=== PATIENT | female | born 1955 | race Caucasian/White ===

== ENCOUNTER 2017-03-06 00:37 | Observation (INO) | payer OTHER ==
[2017-03-06] VITALS (10 sets, daily range): BP systolic 162–232; BP diastolic 72–100; PULSE 60–68; RESP 16–20; TEMP 96.8–98.5; O2SAT 95–100
[~2017-03-06] VITALS: Ht 160 cm; Wt 110.0 kg
[~2017-03-06 00:37] MED LIST: LASI20TA PO; NOVONP2 SQ; SERT100 PO; TERA2CAP3 PO; TOPR100T15 PO
--- NOTE | 2017-03-06 01:08 | PD ---
HPI Chief Complaint: Syncope/Near-Syncope Time Seen by Provider: 00:51 Travel History International Travel<30 days: No Contact w/Intl Traveler<30days: No Traveled to known affect area: No History of Present Illness HPI The patient is a 61 year old female who presents to the [facility] emergency department with a history of syncopal event that first occurred 10-11 days ago. She reports that she did not fall or injure herself. Her son was able to assist her to lie down in bed. She reports that she was not evaluated regarding this. 30 minutes prior to arrival she took her nightly insulin and 2 blood pressure medications and stood up to go to bed. She reports that she felt dizzy/lightheaded. She reports that she was able to sit back down and called out to her son in the other room. Her son arrived in the room began to speak to her, however she became less responsive to him although still with her eyes open. She reports that this lasted for a few seconds and the symptoms again resolved. She reports having generalized weakness after this. She denies having any chest pain, chest pressure, or shortness of breath. She reports that she did receive her usual hemodialysis on Monday. She reports that she normally receives that on Monday, , and Monday. She reports that she's been on hemodialysis for the last 3-1/2 years. A review of systems, the patient denies any recent fevers, cough, congestion, neck pain, chest pain, shortness of breath, palpitations, abdominal pain, vomiting, diarrhea, urinary symptoms, one-sided weakness, slurred speech, facial droop, difficulty with word finding ability, or vision changes [facility] Past Medical History Narrative Medical The patient's past medical history is significant for diabetes mellitus, hypertension, history of pulmonary edema thought to be related to renal failure that has not recurred since being placed on hemodialysis, anemia, COPD, gout, depression, chronic renal failure on hemodialysis.. Anemia: Yes Arthritis: Yes (LOWER BACK) Asthma: No Autoimmune Disease: No Blood Disorders: No Anxiety: No Depression: Yes Heart Rhythm Problems: No Cancer: No Cardiac Catheterization: Yes (MARCH OF 2008) Cardiovascular Problems: Yes High Cholesterol: Yes Chemotherapy: No Chest Pain: No Congestive Heart Failure: Yes COPD: No Cerebrovascular Accident: Yes Diabetes: Yes Patient Takes Glucophage: No Diminished Hearing: No Endocrine: Yes Gastrointestinal Disorders: Yes (DIARRHEA X 3 MTHS,20MINUTES AFTER EAT) GERD: Yes Glaucoma: No Gout: Yes Genitourinary: Yes (KIDNEY STONES > 10 YEARS AGO) Headaches: No Hepatitis: No Hiatal Hernia: No Hypertension: Yes Immune Disorder: No Kidney Stones: Yes Musculoskeletal: No Neurologic: No Psychiatric: No Reproductive: No Respiratory: Yes (EPISODES OF SOB) Immunizations Current: Yes Migraines: No Myocardial Infarction: No Radiation Therapy: No Renal Failure: Yes (STATES KIDNEY FUNCTION AT 50%) Seizures: No Sickle Cell Disease: No Sleep Apnea: No Thyroid Disease: No Ulcer: No Tetanus Vaccination: < 5 Years Influenza Vaccination: No Menopausal: Yes : 2 Para: 2 Tubal Ligation: Yes Past Surgical History Narrative Surgical The patient's past surgical history is significant for a 2, cholecystectomy, hernia repair. Abdominal Surgery: Yes (HERNIA X 2,GALLBLADDER REMOVED) AICD: No Appendectomy: No Arteriovenous Shunt: No Cardiac Surgery: Yes (CATH JUN 2008) Section: Yes (X 2) Cholecystectomy: Yes Ear Surgery: No Endocrine Surgery: No Eye Surgery: No Genitourinary Surgery: No Gynecologic Surgery: Yes (2 CSECTIONS) Insulin Pump: No Joint Replacement: No Oral Surgery: No Pacemaker: No Thoracic Surgery: No Other Surgery: Yes (UMBILICAL HERNIA REPAIR 2006) Social History Alcohol Use: No Tobacco Use: No Substance Use: No Allergies-Medications (Allergen,Severity, Reaction): Coded Allergies: No Known Allergies (Verified , 03/06/17) Reported Meds & Prescriptions Reported Meds & Active Scripts Active Reported Duloxetine DR (Duloxetine HCl) 20 Mg Capdr 20 Mg PO DAILY Synthroid (Levothyroxine Sodium) 50 Mcg Tab 50 Mcg PO DAILY Renvela (Sevelamer Carbonate) 800 Mg Tab 800 Mg PO TID Novolin N Inj (Insulin Human NPH) 100 Unit/Ml Inj 78 Unit SQ DAILY TAKE 78 UNITS AM AND 38 UNITS PM Fluoxetine (Fluoxetine HCl) 40 Mg Cap 40 Cap PO DAILY Guanfacine (Guanfacine HCl) 1 Mg Tab 1 Mg PO HS Do not crush, chew or divide tablet. Take with a meal. Terazosin (Terazosin HCl) 10 Mg Cap 10 Mg PO HS Metoprolol Tartrate 50 Mg Tab 50 Mg PO DAILY Review of Systems Except as stated in HPI: all other systems reviewed are Neg General / Constitutional: No: Fever Eyes: No: Visual changes HENT: Positive: Lightheadedness, No: Headaches, Vertigo Cardiovascular: Positive: Syncope, No: Chest Pain or Discomfort, Dyspnea on exertion Respiratory: No: Shortness of Breath Gastrointestinal: No: Nausea, Vomiting, Diarrhea, Abdominal Pain Genitourinary: No: Dysuria Musculoskeletal: No: Pain Skin: No Rash Neurologic: Positive: Syncope, No: Weakness, Focal Abnormalities, Change in Mentation, Slurred Speech, Sensory Disturbance Psychiatric: No: Depression Endocrine: No: Polydipsia Hematologic/Lymphatic: No: Easy Bruising Physical Exam Narrative General: The patient is a well-developed well-nourished female in no acute distress. Head and Neck exam: Head is normocephalic atraumatic. Eyes: EOMI, pupils are equal round and reactive to light. Nose: Midline septum with pink mucous membranes Mouth: Dentition unremarkable. Moist mucus membranes. Posterior oropharynx is not erythematous. No tonsillar hypertrophy. Uvula midline. Airway patent. Neck: No palpable lymphadenopathy. No nuchal rigidity. No thyromegaly. Cardiovascular: Regular rate and rhythm without murmurs, gallops, or rubs. No pulse deficit to the extremities and simultaneous auscultation and palpation of her radial artery. Lungs: Clear to auscultation bilaterally. No wheezes, rhonchi, or rales. Abdomen: Soft, without tenderness to palpation in all 4 quadrants of the abdomen. No guarding, rebound, or rigidity. Normal bowel sounds are audible. No tenderness on palpation of McBurney's point. Extremities: No clubbing, cyanosis, or edema. 2+ pulses in all 4 extremities. No calf tenderness on palpation. Back: No costovertebral angle tenderness to palpation. Neurologic Exam: Cranial nerves 2-12 were intact on exam. Strength is 5/5 in all 4 extremities. No sensory deficits noted. Skin Exam: No rash noted. Intact skin that is warm and dry. Data Data Last Documented VS Vital Signs Date Time Temp Pulse Resp B/P Pulse Ox O2 Delivery O2 Flow Rate FiO2 03/06/17 02:40 66 18 191/87 67 18 190/86 70 20 198/90 03/06/17 02:40 100 Room Air 03/06/17 00:39 98.2 Orders Complete Blood Count With Diff (03/06/17 00:51) Comprehensive Metabolic Panel (03/06/17 00:51) Creatine Kinase (Cpk) (03/06/17 00:51) Ckmb (Isoenzyme) Profile (03/06/17 00:51) Troponin I (03/06/17 00:51) B-Type Natriuretic Peptide (03/06/17 00:51) Prothrombin Time / Inr (Pt) (03/06/17 00:51) Act Partial Throm Time (Ptt) (03/06/17 00:51) Lipase (03/06/17 00:51) Magnesium (Mg) (03/06/17 00:51) Phosphorus (Po4) (03/06/17 00:51) Chest, Single Ap (03/06/17 00:51) Ct Brain W/O Iv Contrast(Rout) (03/06/17 00:51) Iv Access Insert/Monitor (03/06/17 00:51) Ecg Monitoring (03/06/17 00:51) Oximetry (03/06/17 00:51) Orthostatic Vital Signs (03/06/17 00:53) CKMB (03/06/17 00:56) CKMB% (03/06/17 00:56) Clonidine (Catapres) (03/06/17 03:45) Admit Order (Ed Use Only) (03/06/17 03:39) Bedside Glucose LINA.AC&HS (03/06/17 03:36) Blood Glucose Goal (Criteria) (03/06/17 03:36) Hypoglycemia 70 Mg/Dl Or < (03/06/17 03:36) Notify Dr: Other (03/06/17 03:36) Dextrose 50% In Natty (Vial) Inj (D50w (Vi (03/06/17 03:45) Glucagon Inj (Glucagon Inj) (03/06/17 03:45) Insulin Aspart Supplemtl Scale (Novolog (03/06/17 07:00) Hemoglobin (Hgb) A1c (03/06/17 08:00) Thyroid Stimulating Hormone (03/06/17 08:00) Echo 2d Comp With Doppler (03/06/17 ) Place In Observation (03/06/17 ) Vital Signs (Adult) Q4H (03/06/17 03:36) Activity Oob With Assistance (03/06/17 03:36) Signaling Project Engineer / Telemetry .CONTINUOUS (03/06/17 03:36) Intake + Output LINA.QSHIFT (03/06/17 03:36) Diet 1800 Ada Cons Carb (03/06/17 Breakfast) Sodium Chloride 0.9% Flush (Ns Flush) (03/06/17 03:45) Sodium Chloride 0.9% Flush (Ns Flush) (03/06/17 09:00) Ondansetron Inj (Zofran Inj) (03/06/17 03:45) Comprehensive Metabolic Panel (03/07/17 06:00) Complete Blood Count With Diff (03/07/17 06:00) Troponin I (03/06/17 08:00) Troponin I (03/06/17 14:00) Heparin Inj (Heparin Inj) (03/06/17 09:00) Acetaminophen (Tylenol) (03/06/17 03:45) Acetamin-Hydrocod 325-5 Mg ([place] 5-325 (03/06/17 03:45) Morphine Inj (Morphine Inj) (03/06/17 03:45) Docusate Sodium-Senna (Marilyn-Colace) (03/06/17 09:00) Magnesium Hydroxide Liq (Milk Of Magnesi (03/06/17 03:45) Sennosides (Senokot) (03/06/17 03:45) Bisacodyl Supp (Dulcolax Supp) (03/06/17 03:45) Lactulose Liq (Lactulose Liq) (03/06/17 03:45) Duloxetine (Vandana Caal) (03/06/17 09:00) Fluoxetine (Prozac) (03/06/17 09:00) Levothyroxine (Synthroid) (03/06/17 06:00) Metoprolol Tartrate (Lopressor) (03/06/17 09:00) Sevelamer (Renvela) (03/06/17 09:00) Terazosin (Hytrin) (03/06/17 21:00) Labs Laboratory Tests Test 03/06/17 03/06/17 03/06/17 00:56 01:18 03:40 Prothrombin Time 10.1 SEC Prothromb Time International 0.9 RATIO Ratio Activated Partial 22.6 SEC Thromboplast Time Sodium Level 137 MEQ/L Potassium Level 5.0 MEQ/L Chloride Level 104 MEQ/L Carbon Dioxide Level 25.9 MEQ/L Anion Gap 7 MEQ/L Blood Urea Nitrogen 39 MG/DL Creatinine 7.30 MG/DL Estimat Glomerular Filtration 6 ML/MIN Rate Random Glucose 179 MG/DL Calcium Level 7.6 MG/DL Phosphorus Level 2.8 MG/DL Magnesium Level 2.3 MG/DL Total Bilirubin 0.3 MG/DL Aspartate Amino Transf 39 U/L (AST/SGOT) Alanine Aminotransferase 37 U/L (ALT/SGPT) Alkaline Phosphatase 152 U/L Total Creatine Kinase 142 U/L Creatine Kinase MB 0.8 NG/ML Troponin I LESS THAN 0.02 NG/ML Total Protein 8.3 GM/DL Albumin 3.3 GM/DL Lipase 432 U/L White Blood Count 7.6 TH/MM3 Red Blood Count 3.63 MIL/MM3 Hemoglobin 11.7 GM/DL Hematocrit 35.9 % Mean Corpuscular Volume 98.7 FL Mean Corpuscular Hemoglobin 32.2 PG Mean Corpuscular Hemoglobin 32.7 % Concent Red Cell Distribution Width 14.0 % Platelet Count 153 TH/MM3 Mean Platelet Volume 9.0 FL Neutrophils (%) (Auto) 75.3 % Lymphocytes (%) (Auto) 16.5 % Monocytes (%) (Auto) 4.6 % Eosinophils (%) (Auto) 3.1 % Basophils (%) (Auto) 0.5 % Neutrophils # (Auto) 5.7 TH/MM3 Lymphocytes # (Auto) 1.3 TH/MM3 Monocytes # (Auto) 0.3 TH/MM3 Eosinophils # (Auto) 0.2 TH/MM3 Basophils # (Auto) 0.0 TH/MM3 CBC Comment DIFF FINAL Differential Comment B-Type Natriuretic Peptide 162 PG/ML Urine Color YELLOW Urine Turbidity HAZY Urine pH 6.5 Urine Specific [place] 1.014 Urine Protein 100 mg/dL Urine Glucose (UA) TRACE mg/dL Urine Ketones NEG mg/dL Urine Occult Blood TRACE Urine Nitrite NEG Urine Bilirubin NEG Urine Urobilinogen 2.0 MG/DL Urine Leukocyte Esterase MOD Urine RBC 0-3 /hpf Urine WBC 9-14 /hpf Urine Squamous Epithelial 6-8 /hpf Cells Urine Bacteria FEW /hpf Microscopic Urinalysis Comment CULTURE INDICATED MDM Medical Decision Making Medical Screen Exam Complete: Yes Emergency Medical Condition: Yes Medical Record Reviewed: Yes Interpretation(s) Last Impressions Head CT 03/06/1750 Signed Impressions: Service Date/Time: Monday, March 06, 2017 01:20 - CONCLUSION: Normal examination. Ted Mi MD Chest X-Ray 03/06/1750 Signed Impressions: Service Date/Time: Monday, March 06, 2017 01:14 - CONCLUSION: Normal examination. Ted Mi MD Differential Diagnosis Cardiac arrhythmia, versus orthostasis, versus acute coronary syndrome, versus pulmonary edema, versus electrolyte derangement Narrative Course During the course of the patients emergency department visit, the patients history, examination, and differential diagnosis were reviewed with the patient. The patient had IV access obtained and blood work sent for analysis. The patient was placed on a cardiac cath rn with oximetry and blood pressure monitoring. An EKG was done on arrival. The patient's EKG shows a sinus rhythm heart rate of 62, QRS duration is 81 ms, QTC is prolonged at 472 ms, no acute ST segment elevation or depression. T waves are inverted in V1. The patients laboratory studies were reviewed and remarkable for white count of 7.6, hemoglobin 11.6, platelets 153 with neutrophils 75.3, CMP is remarkable for BUN of 39, creatinine 7.30, glucose 179, calcium 7.6, AST 39, alkaline phosphatase 152, CPK 152, troponin I less than 0.02, BNP 162, lipase 432, PT 10.1, PTT 22.6 Radiology studies were reviewed and remarkable for a chest x-ray that shows no acute abnormality. CT scan of the brain shows no acute abnormality. The patient will be administered admitted to the hospital for recurrent syncopal events for continued evaluation and treatment. The patients results were discussed with the patient, including the plan of care. I explained that further testing and/ or monitoring is indicated based on the patients history, examination, and/ or laboratory findings. Therefore, I recommended admission for additional evaluation. The patient expressed understanding and was agreeable with this plan. The patient was admitted to the hospital in stable condition and sent to a bed under the care of the [facility]. Physician Communication Physician Communication The patient's case was discussed with Dr. Ayoub who did agree to admit the patient for further evaluation and treatment at this time. Diagnosis Primary Impression: Syncope Qualified Code: R55 - Syncope, unspecified syncope type Admitting Information Admitting Physician Requests: Armida Robles MD Mar 06, 2017 01:08
[2017-03-06] MEDS ORDERED: GUAN1TAB PO (01:11)
[2017-03-06] MEDS ORDERED: LEVO.05 PO (01:11)
[2017-03-06] MEDS ORDERED: NOVONP2 SQ (01:11)
[2017-03-06] MEDS ORDERED: DULO1CAP PO (01:11)
[2017-03-06] MEDS ORDERED: SEVEL800 PO (01:11)
[2017-03-06] MEDS ORDERED: FLUO40CA PO (01:11)
[2017-03-06] MEDS ORDERED: TERA10CA3 PO (01:11)
[2017-03-06] MEDS ORDERED: METO50TA PO (01:11)
--- NOTE | 2017-03-06 01:29 | RADRPT ---
EXAM DATE/TIME: 03/06/2017 01:14 [facility] COMPARISON: No previous studies available for comparison. INDICATIONS : Chest pain. MEDICAL HISTORY : None. SURGICAL HISTORY : None. ENCOUNTER: Initial ACUITY: 1 day PAIN SCORE: 0/10 LOCATION: Bilateral chest FINDINGS: A single view of the chest demonstrates the lungs to be symmetrically aerated without evidence of mas s, infiltrate or effusion. The cardiomediastinal contours are unremarkable. Osseous structures are intact. CONCLUSION: Normal examination. Ted Mi MD on March 06, 2017 at 1:28 Board Certified Radiologist. This report was verified electronically.
[2017-03-06 01:30] LABS: APTT (PATIENT) 22.6 SEC (24.3-30.1); INTERNATIONAL NORMALIZED RATIO 0.9 RATIO; PROTHROMBIN TIME - PATIENT 10.1 SEC (9.8-11.6)
[2017-03-06 01:35] LABS: ALKALINE PHOSPHATASE 152 U/L (45-117); ALT (GPT) 37 U/L (10-53); ANION GAP 7 MEQ/L (5-15); AST (GOT) 39 U/L (15-37); BICARBONATE 25.9 MEQ/L (21.0-32.0); BLOOD UREA NITROGEN 39 MG/DL (7-18); CHLORIDE 104 MEQ/L (98-107); CREATINE KINASE 142 U/L (26-192); GLOMERULAR FILTRATION RATE 6 ML/MIN (>89); MAGNESIUM 2.3 MG/DL (1.5-2.5); SODIUM (NA) 137 MEQ/L (136-145); TOTAL BILIRUBIN ADULT 0.3 MG/DL (0.2-1.0)
--- NOTE | 2017-03-06 01:36 | RADRPT ---
EXAM DATE/TIME: 03/06/2017 01:20 [facility] COMPARISON: No previous studies available for comparison. INDICATIONS : Syncope. RADIATION DOSE: 37.02 CTDIvol (mGy) MEDICAL HISTORY : Cardiovascular disease. Congestive heart failure. Renal calculi.Renal failure. Hypertension. SURGICAL HISTORY : Cholecystectomy. Tubal ligation. section.Hernia repair. ENCOUNTER: Initial ACUITY: 1 day PAIN SCALE: 0/10 LOCATION: cranial TECHNIQUE: Multiple contiguous axial images were obtained of the head. Using automated exposure control and adj ustment of the mA and/or kV according to patient size, radiation dose was kept as low as reasonably a chievable to obtain optimal diagnostic quality images. FINDINGS: CEREBRUM: The ventricles are normal for age. No evidence of midline shift, mass lesion, hemorrhage or acute in farction. No extra-axial fluid collections are seen. POSTERIOR FOSSA: The cerebellum and brainstem are intact. The 4th ventricle is midline. The cerebellopontine angle i s unremarkable. EXTRACRANIAL: The visualized portion of the orbits is intact. SKULL: The calvaria is intact. No evidence of skull fracture. CONCLUSION: Normal examination. Ted Mi MD on March 06, 2017 at 1:35 Board Certified Radiologist. This report was verified electronically.
[2017-03-06 01:47] LABS: AUTOMATED NEUTROPHIL # 5.7 TH/MM3 (1.8-7.7); BASOPHIL % 0.5 % (0.0-2.0); EOSINOPHIL # 0.2 TH/MM3 (0-0.4); EOSINOPHIL % 3.1 % (0.0-4.0); HEMATOCRIT 35.9 % (35.0-46.0); HEMO FLAGS DIFF FINAL; LYMPH % 16.5 % (9.0-44.0); LYMPHOCYTE # 1.3 TH/MM3 (1.0-4.8); MEAN CELL VOLUME 98.7 FL (80.0-100.0); MEAN CORPUSCULAR HEMOGLOBIN 32.2 PG (27.0-34.0); MEAN CORPUSCULAR HGB CONC 32.7 % (32.0-36.0); MONO % 4.6 % (0.0-8.0); NEUT % 75.3 % (16.0-70.0); PLATELET COUNT 153 TH/MM3 (150-450); RED BLOOD COUNT 3.63 MIL/MM3 (4.00-5.30); WHITE BLOOD COUNT 7.6 TH/MM3 (4.0-11.0)
[2017-03-06 01:48] LABS: CKMB 0.8 NG/ML (0.5-3.6)
[2017-03-06] MEDS ORDERED: MAGNESIUM HYDROXIDE SUSP 30 ML CUP PO PRN (03:45)
[2017-03-06] MEDS ORDERED: SENNOSIDES 8.6 MG TAB PO PRN (03:45)
[2017-03-06] MEDS ORDERED: DEXTROSE 50% IN WATER 50 ML VIAL(D50) IV PRN (03:45)
[2017-03-06] MEDS ORDERED: LACTULOSE SYRUP 20 GM/30 ML CUP PO PRN (03:45)
[2017-03-06] MEDS ORDERED: ONDANSETRON HCL 4 MG/2 ML VIAL IVP PRN (03:45)
[2017-03-06] MEDS ORDERED: BISACODYL 10 MG SUPP RECTAL PRN (03:45)
[2017-03-06] MEDS ORDERED: ACETAMINOPHEN/HYDROcodone 325 MG/5 MG TAB PO PRN (03:45)
[2017-03-06] MEDS ORDERED: GLUCAGON 1 MG/ML VIAL OTHER PRN (03:45)
[2017-03-06] MEDS ORDERED: ACETAMINOPHEN 325 MG TAB PO PRN (03:45)
[2017-03-06] MEDS ORDERED: cloNIDine HCL 0.1 MG TAB PO ONE (03:45)
[2017-03-06] MEDS ORDERED: MORPHINE SULFATE 4 MG/ML INJ IV PRN (03:45)
[2017-03-06] MEDS ORDERED: SODIUM CHLORIDE 0.9% FLUSH 10 ML FLUSH IV FLUSH PRN (03:45)
[2017-03-06] MEDS ORDERED: hydrALAZINE HCL 20 MG/ML VIAL IV PUSH ONE (04:00)
[2017-03-06 04:13] LABS: BLOOD, URINE TRACE (NEG); GLUCOSE,URINE TRACE mg/dL (NEG); KETONE, URINE NEG (NEG); NITRITE,URINE NEG (NEG); PH, URINE 6.5 (5.0-8.5); URINE COLOR YELLOW (YELLW/STRAW)
[2017-03-06] MEDS ORDERED: SODIUM CHLORID 0.9% 500 ML INJ 500 ML IV ONE (04:15)
[2017-03-06 04:21] LABS: BACTERIA, URINE FEW /hpf; COMMENT (UR) CULTURE INDICATED; CULTURE IF INDICATED CULTURE INDICATED; RBC, URINE 0-3 /hpf (0-3)
--- NOTE | 2017-03-06 04:29 | HHI.HP ---
[facility] Shakila Orona MD Admission Diagnosis syncope, hypertension Diagnoses: (1) Syncope Diagnosis: Principal (2) Dehydration Diagnosis: Principal (3) Pancreatitis Diagnosis: Principal (4) HTN (hypertension) Diagnosis: Principal (5) DM (diabetes mellitus) Diagnosis: Principal (6) ESRD on hemodialysis Diagnosis: Principal Travel History International Travel<30 Days: No Contact w/Intl Traveler <30 Da: No Traveled to Known Affected Are: No History of Present Illness This is a 61-year-old female with a PMH of HTN, COPD, Gout, Depression, ESRD on HD T//Mon and DM who presented to the ER after apparent syncopal event. Pt states she had been sitting at her computer for several hours, got up to go to bed and had acute onset of dizziness and confusion, Son was present at the time and assisted pt into a chair. Per Son, pt staring off and confused for a moment. Reports similar symptoms approx 10 days ago when she got up to go the bathroom, did not seek medical attention at that time. States she "had been sick" for approx 4 wks prior to first episode and had been on multiple antibiotic regimens for Bronchitis, denies steroid therapy. Also notes having dialysis on Sat as scheduled, approx 1.5L removed which is her usual. Denies fever, chills, chest pain or cough. On arrival, BP 232/100, HR 60, O2 sat 98% on RA, Afebrile. BP currently 191/87, HR 66. CBC unremarkable. Chemistry at baseline. Lipase 432. UA pending. CXR with no acute findings. CT Head normal. Review of Systems Except as stated in HPI: all other systems reviewed are Neg ROS: 14 point review of systems otherwise negative. Past Family Social History Past Medical History PMH: HTN, COPD, Gout, Depression, ESRD on HD T/Th/Sat and DM Past Surgical History PAST SURGICAL HISTORY: Cholecystectomy, Hernia Repair, , Cardiac Cath Allergies: Coded Allergies: No Known Allergies (Verified , 03/06/17) Family History PAST FAMILY HISTORY: Reviewed, positive for DM and CAD. Social History PAST SOCIAL HISTORY: Negative for alcohol, tobacco or drugs. Physical Exam Vital Signs Vital Signs Date Time Temp Pulse Resp B/P Pulse Ox O2 Delivery O2 Flow Rate FiO2 03/06/17 02:40 66 18 191/87 67 18 190/86 70 20 198/90 03/06/17 02:40 100 Room Air 03/06/17 00:44 61 18 98 Room Air 03/06/17 00:39 98.2 60 18 232/100 98 Physical Exam PE: GENERAL: Very pleasant middle-aged white female in no acute distress. HEENT: PERRLA, EOMI. No scleral icterus or conjunctival pallor. No lid lag or facial droop. Dry mucous membranes, Dehydrated. CARDIOVASCULAR: Regular rate and rhythm. No obvious murmurs to auscultation. No chest tenderness to palpation. RESPIRATORY: No obvious rhonchi or wheezing. Clear to auscultation. Breath sounds equal bilaterally. GASTROINTESTINAL: Abdomen soft, non-tender, nondistended. BS normal. MUSCULOSKELETAL: Extremities without clubbing, cyanosis, or edema. No obvious deformities. NEUROLOGICAL: Awake, alert and oriented x4. No focal neurologic deficits. Moving both upper and lower extremities spontaneously. Laboratory Laboratory Tests Test 03/06/17 03/06/17 03/06/17 00:56 01:18 03:40 Prothrombin Time 10.1 Prothromb Time International 0.9 Ratio Activated Partial 22.6 Thromboplast Time Sodium Level 137 Potassium Level 5.0 Chloride Level 104 Carbon Dioxide Level 25.9 Anion Gap 7 Blood Urea Nitrogen 39 Creatinine 7.30 Estimat Glomerular Filtration 6 Rate Random Glucose 179 Calcium Level 7.6 Phosphorus Level 2.8 Magnesium Level 2.3 Total Bilirubin 0.3 Aspartate Amino Transf 39 (AST/SGOT) Alanine Aminotransferase 37 (ALT/SGPT) Alkaline Phosphatase 152 Total Creatine Kinase 142 Creatine Kinase MB 0.8 Troponin I LESS THAN 0.02 Total Protein 8.3 Albumin 3.3 Lipase 432 White Blood Count 7.6 Red Blood Count 3.63 Hemoglobin 11.7 Hematocrit 35.9 Mean Corpuscular Volume 98.7 Mean Corpuscular Hemoglobin 32.2 Mean Corpuscular Hemoglobin 32.7 Concent Red Cell Distribution Width 14.0 Platelet Count 153 Mean Platelet Volume 9.0 Neutrophils (%) (Auto) 75.3 Lymphocytes (%) (Auto) 16.5 Monocytes (%) (Auto) 4.6 Eosinophils (%) (Auto) 3.1 Basophils (%) (Auto) 0.5 Neutrophils # (Auto) 5.7 Lymphocytes # (Auto) 1.3 Monocytes # (Auto) 0.3 Eosinophils # (Auto) 0.2 Basophils # (Auto) 0.0 CBC Comment DIFF FINAL Differential Comment B-Type Natriuretic Peptide 162 Urine Color YELLOW Urine Turbidity HAZY Urine pH 6.5 Urine Specific [place] 1.014 Urine Protein 100 Urine Glucose (UA) TRACE Urine Ketones NEG Urine Occult Blood TRACE Urine Nitrite NEG Urine Bilirubin NEG Urine Urobilinogen 2.0 Urine Leukocyte Esterase MOD Result Diagram: 03/06/17 0118 03/06/17 0056 Assessment and Plan Problem List: (1) Syncope ICD Code: R55 Status: Acute (2) Dehydration ICD Code: E86.0 Status: Acute (3) Pancreatitis ICD Code: K85.90 Status: Acute (4) ESRD on hemodialysis ICD Code: N18.6 Status: Acute (5) HTN (hypertension) ICD Code: I10 Status: Acute (6) DM (diabetes mellitus) ICD Code: E11.9 Status: Acute Assessment and Plan A/P: 1. Syncope: acute onset of dizziness/lightheadedness after standing, likely vasovagal event, transient confusion, now resolved. CT Head w/ no acute findings, CXR negative, images reviewed by me. Initial trop negative. Will check serial cardiac enzymes to eval for underlying ischemia, although unlikely. Telemetry. Check Echo. 2. Dehydration: +dehydration on exam, dry mucous membranes. Will give small IVF bolus for hydration as no acute fluid overload state at this time. 3. Pancreatitis: Lipase 432. Denies nausea, vomiting or abdominal pain. Protonix IV, recheck lipase. 4. ESRD on HD: T//Mon, following w/ Dr. Geronimo Tello, last HD Monday without complications. Will consult Nephrology as needed. 5. HTN: Uncontrolled. BP 232/100, HR 60 on arrival, currently BP 191/87, HR 66. S/p Clonidine 0.1mg in ER, will give additional Hydralazine 10mg IV and restart home medications. Monitor BP. 6. DM: Sliding scale w/ Accu-Cheks. Check Hgb A1c 7. DVT Prophylaxis: Heparin sq 8. Social work for d/c planning as needed. 9. Case discussed w/ ER physician at length. Problem Qualifiers (1) Syncope: Qualified Code: R55 - Syncope, unspecified syncope type Priya Ayoub MD Mar 06, 2017 04:29
[2017-03-06] MEDS: INSULIN ASPART SUPPLEMENTAL SCALE SQ SCH ×4 (07:00→22:19)
[2017-03-06] MEDS: LEVOTHYROXINE SODIUM 50 MCG TAB PO SCH (07:07)
[2017-03-06] MEDS ORDERED: DULoxetine HCl DR 20 MG CAP PO SCH (09:00)
[2017-03-06] MEDS ORDERED: METOPROLOL TARTRATE 50 MG TAB PO SCH (09:00)
[2017-03-06] MEDS: DOCUSATE SODIUM 50 MG/SENNA 8.6 MG TAB PO SCH ×2 (09:00→22:18)
[2017-03-06] MEDS: PANTOPRAZOLE SODIUM 40 MG VIAL IV PUSH SCH ×2 (09:32→22:17)
[2017-03-06] MEDS: SODIUM CHLORIDE 0.9% FLUSH 10 ML FLUSH IV FLUSH SCH ×2 (09:32→22:17)
[2017-03-06] MEDS: SEVELAMER CARBONATE 800 MG TAB PO SCH ×3 (09:42→18:02)
[2017-03-06] MEDS: FLUoxetine HCL 20 MG CAP PO SCH (09:42)
[2017-03-06] MEDS: HEPARIN SODIUM - SQ 10,000 UNITS/ML VIAL SQ SCH ×2 (09:45→22:19)
[2017-03-06 11:44] LABS: HEMOGLOBIN A1a 0.9 %; HEMOGLOBIN A1b 2.2 %; HEMOGLOBIN Ao 82.7 %; HEMOGLOBIN LA1C 2.5 %; HEMOGLOBIN P3 5.9 %
--- NOTE | 2017-03-06 14:26 | EKG ---
Date Performed: 03/06/2017 Time Performed: 00:49:37 PTAGE: 61 years EKG: Sinus rhythm PROLONGED QT INTERVAL ABNORMAL ECG Previous T wave flattening has resolved since prior tracing NO PREVIOUS TRACING : 10/02/09 DOCTOR: Hawk Vasquez Interpretating Date/Time 03/06/2017 14:24:13
--- NOTE | 2017-03-06 16:57 | HHI.PR ---
Addendum to Inpatient Note Addendum Reason: Additional Documentation Additional Information Patient denies dizziness, cp/sob. Patient's blood pressure is elevated. Patient AAOx3, nad. Lungs are clear BL, Abdomen is soft, Nt, ND Syncope likely due to dehydration and possible orthostatic hypotension. UA had several squamous cells, will repeat urinalysis. fu 2 D echo. Hemanth Samson MD Mar 06, 2017 16:57
[2017-03-06 18:23] LABS: BLOOD, URINE NEG (NEG); COMMENT (UR) CULTURE INDICATED; CULTURE IF INDICATED CULTURE INDICATED; GLUCOSE,URINE 70 mg/dL (NEG); KETONE, URINE NEG (NEG); NITRITE,URINE NEG (NEG); SQUAMOUS EPITHELIAL CELL URINE 1 /hpf (0-5); URINE COLOR YELLOW (YELLW/STRAW)
[2017-03-06] MEDS: TERAZOSIN HCL 5 MG CAP PO SCH (22:18)
[2017-03-07] VITALS (9 sets, daily range): BP systolic 119–183; BP diastolic 57–81; PULSE 60–80; RESP 16–22; TEMP 96.4–98.5; O2SAT 95–99
[2017-03-07] MEDS: LEVOTHYROXINE SODIUM 50 MCG TAB PO SCH (06:06)
[2017-03-07] MEDS: INSULIN ASPART SUPPLEMENTAL SCALE SQ SCH ×4 (06:06→20:21)
[2017-03-07 07:49] LABS: AUTOMATED NEUTROPHIL # 3.8 TH/MM3 (1.8-7.7); BASOPHIL % 0.4 % (0.0-2.0); EOSINOPHIL # 0.2 TH/MM3 (0-0.4); EOSINOPHIL % 3.5 % (0.0-4.0); HEMATOCRIT 30.1 % (35.0-46.0); HEMO FLAGS DIFF FINAL; LYMPH % 22.6 % (9.0-44.0); LYMPHOCYTE # 1.3 TH/MM3 (1.0-4.8); MEAN CELL VOLUME 97.2 FL (80.0-100.0); MEAN CORPUSCULAR HEMOGLOBIN 33.1 PG (27.0-34.0); MEAN CORPUSCULAR HGB CONC 34.1 % (32.0-36.0); NEUT % 64.5 % (16.0-70.0); PLATELET COUNT 157 TH/MM3 (150-450); RED CELL DISTRIBUTION WIDTH 14.2 % (11.6-17.2); WHITE BLOOD COUNT 5.9 TH/MM3 (4.0-11.0)
[2017-03-07 08:23] LABS: ALKALINE PHOSPHATASE 103 U/L (45-117); ALT (GPT) 31 U/L (10-53); ANION GAP 8 MEQ/L (5-15); AST (GOT) 28 U/L (15-37); BICARBONATE 25.9 MEQ/L (21.0-32.0); BLOOD UREA NITROGEN 56 MG/DL (7-18); CHLORIDE 106 MEQ/L (98-107); GLOMERULAR FILTRATION RATE 5 ML/MIN (>89); POTASSIUM 5.5 MEQ/L (3.5-5.1); SODIUM (NA) 140 MEQ/L (136-145); TOTAL BILIRUBIN ADULT 0.4 MG/DL (0.2-1.0)
[2017-03-07] MEDS: SEVELAMER CARBONATE 800 MG TAB PO SCH ×3 (09:00→18:01)
[2017-03-07] MEDS ORDERED: INFLUENZA VIRUS VACCINE (QUADRIVALENT) 0.5 ML SYR IM ONE (09:00)
[2017-03-07] MEDS: DOCUSATE SODIUM 50 MG/SENNA 8.6 MG TAB PO SCH ×2 (09:00→20:25)
[2017-03-07] MEDS: hydrALAZINE HCL 10 MG TAB PO SCH ×3 (09:30→22:16)
[2017-03-07] MEDS ORDERED: SODIUM CHLOR 0.9% 1000 ML INJ 1,000 ML IV PRN ×3 (09:56)
[2017-03-07] MEDS ORDERED: HEPARIN SODIUM - IV 10,000 UNITS/10 ML VIAL IVF PRN (10:00)
[2017-03-07] MEDS ORDERED: diphenhydrAMINE HCL 25 MG CAP PO PRN (10:00)
[2017-03-07] MEDS ORDERED: NITROGLYCERIN 0.4 MG SL 25 TABS/BTL SL PRN (10:00)
[2017-03-07] MEDS ORDERED: EPOETIN ALFA 2,000 UNITS/ML VIAL IV PRN (10:00)
[2017-03-07] MEDS ORDERED: GELATIN 12 MM/7 MM FOAM TOP PRN (10:00)
[2017-03-07] MEDS ORDERED: MANNITOL 12.5 GM/50 ML VIAL IV PRN (10:00)
[2017-03-07] MEDS ORDERED: GENTAMICIN SULFATE (DIALYSIS USE ONLY) 20 MG/2 ML VIAL IV PRN (10:00)
[2017-03-07] MEDS ORDERED: SODIUM CHLORIDE 0.9% FLUSH 10 ML FLUSH IV FLUSH PRN (10:00)
[2017-03-07] MEDS ORDERED: ALBUMIN HUMAN 25% 25 GM/100 ML BAGP IV PRN (10:00)
[2017-03-07] MEDS ORDERED: ONDANSETRON HCL 4 MG/2 ML VIAL IV PRN (10:00)
[2017-03-07] MEDS ORDERED: ACETAMINOPHEN 325 MG TAB PO PRN (10:00)
[2017-03-07] MEDS ORDERED: cloNIDine HCL 0.1 MG TAB PO PRN (10:00)
[2017-03-07] MEDS ORDERED: HEPARIN SODIUM - IV 10,000 UNITS/10 ML VIAL PRN (10:00)
--- NOTE | 2017-03-07 10:09 | PD.PN.STU ---
Subjective Remarks Patient is a 61 year old obese white female presenting with an acute episode of dizziness. Patient states that on Monday evening she became dizzy and light headed after standing after using the restroom. She said this happened once before about 10 days ago but was not evaluated then. She says that once she felt dizzy she called out to her son who was present, and he helped her sit down. Her symptoms resolved after a few minutes. She did not lose consciousness or fall. She has no other history of prior syncopal episodes. Patient denies headaches, changes or loss of vision, weakness, chest pain, shortness of breath , N/V, diarrhea, abdominal pain. She states that she has not been eating or drinking as much lately, especially since she was recently ill with bronchitis and on antibiotics. Currently she feels well and has not had any symptoms since being in the ED. Pertinent past medical history includes diabetes, hypertension, chronic renal failure. She has been on dialysis for 3.5 years and goes 3 times per week. She had a TIA in 2003. No history of AL, cardiac arrhythmia, valvular disease, stroke. Social: denies alcohol or tobacco use. Objective Vitals Vital Signs Date Time Temp Pulse Resp B/P Pulse Ox O2 Delivery O2 Flow Rate FiO2 03/07/17 07:43 96.4 65 17 180/73 97 03/07/17 04:34 97.3 60 21 130/70 97 03/07/17 00:15 96.7 60 22 151/67 97 03/06/17 21:10 60 03/06/17 20:00 96.8 66 19 173/73 97 03/06/17 14:32 98.4 16 168/88 95 03/06/17 12:00 98.5 67 18 191/81 98 03/06/17 09:52 64 General: Patient is pleasant and nontoxic appearing. She is in no acute distress and is laying down comfortably on the hospital bed. She is able to answer questions appropriately and maintain a decent conversation with eye contact. Cardiac: RRR, S1/S2 auscultated, no murmurs, rubs, gallops. Peripheral pulses equal +2. No carotid bruit. Pulmonary: No central or peripheral cyanosis. Clear breath sounds bilaterally. Result Diagram: 03/07/17 0645 03/07/17 0645 A/P Assessment and Plan 1. Acute onset of dizziness/lightheadedness after standing: vasovagal vs. orthostatic vs. cardiogenic vs. neurologic. Likely vasovagal event due to symptoms occurring upon standing from seating position. Symptoms resolved minutes later. Less likely cardiogenic with no history of cardiac arrhythmias, valvular disease, no hx of AL. BNP was slightly elevated at 162. Echo results are pending. Cardiac enzymes were negative. CXR negative. Less likely neurological, denies neurological symptoms or residual weakness. CT head was negative. 2. Renal failure: currently on hemodialysis for the past 3.5 years. Going for dialysis this morning. BUN: 56, Cr: 8.9. 3. Hypertension: not well controlled. BP today 180/73. Currently taking Terazosin 10mg, metoprolol 50mg. Was given Clonidine 0.1mg in ER and Hydralazine 10mg IV. Continue to monitor BP. 4. DM: Hgb A1c 6.8, random blood glucose 121. Currently taking insulin on sliding scale. Charlotte Spence M3 Mar 07, 2017 10:08
[2017-03-07 10:40] LABS: FREE T4 1.08 NG/DL (0.76-1.46)
--- NOTE | 2017-03-07 11:37 | PD.CONS ---
HPI Service Nephrology Consult Requested By Reason for Consult ESRD on HD Primary Care Physician Shakila Orona MD History of Present Illness This is a 61 y/o dialysis patient who was admitted after near syncopal episode. PMH of DM, HTN, anemia, ESRD on HD TTS, metabolic bone disease. She states she has had a chest cold for several weeks. She did go to dialysis on Monday, and is seen during dialysis today. She has been ambulating around room since arrival. She has no concerns today. We were consulted for dialysis and renal management. (Rossy Presley) Review of Systems Constitutional: COMPLAINS OF: Fatigue Eyes: DENIES: Blurred vision Respiratory: COMPLAINS OF: Cough Neurologic: DENIES: Abnormal gait, Headache, Localized weakness, Speech Problems, Poor Balance Psychiatric: DENIES: Hallucinations (Rossy Presley) Past Family Social History Allergies: Coded Allergies: No Known Allergies (Verified , 03/06/17) Past Medical History ESRD on HD TTS HTN COPD Gout Depression, DM anemia metabolic bone disorder Past Surgical History PAST SURGICAL HISTORY: Cholecystectomy, Hernia Repair, , Cardiac Cath , AV left arm Reported Medications Duloxetine DR (Duloxetine HCl) 20 Mg Capdr 20 Mg PO DAILY Synthroid (Levothyroxine Sodium) 50 Mcg Tab 50 Mcg PO DAILY Renvela (Sevelamer Carbonate) 800 Mg Tab 800 Mg PO TID Novolin N Inj (Insulin Human NPH) 100 Unit/Ml Inj 78 Unit SQ DAILY TAKE 78 UNITS AM AND 38 UNITS PM Fluoxetine (Fluoxetine HCl) 40 Mg Cap 40 Cap PO DAILY Guanfacine (Guanfacine HCl) 1 Mg Tab 1 Mg PO HS Do not crush, chew or divide tablet. Take with a meal. Terazosin (Terazosin HCl) 10 Mg Cap 10 Mg PO HS Metoprolol Tartrate 50 Mg Tab 50 Mg PO DAILY Active Ordered Medications Current Medications Medications (Trade) Dose Ordered Sig/Jorgito Route Start Time Stop Time Status Last Admin (D50w (Vial) Inj) 50 ml UNSCH PRN IV 03/06/17 03:45 (Glucagon Inj) 1 mg UNSCH PRN OTHER 03/06/17 03:45 (NS Flush) 2 ml UNSCH PRN IV FLUSH 03/06/17 03:45 (NS Flush) 2 ml BID IV FLUSH 03/06/17 09:00 03/06/17 22:17 (Zofran Inj) 4 mg Q6H PRN IVP 03/06/17 03:45 (Heparin Inj) 5,000 units Q12H SQ 03/06/17 09:00 03/06/17 22:19 (Tylenol) 650 mg Q6H PRN PO 03/06/17 03:45 ([place] 5-325 Mg) 1 tab Q4H PRN PO 03/06/17 03:45 (Morphine Inj) 2 mg Q3H PRN IV 03/06/17 03:45 (Marilyn-Colace) 1 tab BID PO 03/06/17 09:00 03/06/17 22:18 (Milk Of Magnesia Liq) 30 ml Q12H PRN PO 03/06/17 03:45 (Senokot) 17.2 mg Q12H PRN PO 03/06/17 03:45 (Dulcolax Supp) 10 mg DAILY PRN RECTAL 03/06/17 03:45 (Lactulose Liq) 30 ml DAILY PRN PO 03/06/17 03:45 (PROzac) 40 mg DAILY PO 03/06/17 09:00 03/06/17 09:42 (Synthroid) 50 mcg DAILY@0600 PO 03/06/17 06:00 03/07/17 06:06 (Renvela) 800 mg TID PO 03/06/17 09:00 03/06/17 18:02 (Hytrin) 10 mg HS PO 03/06/17 21:00 03/06/17 22:18 (Protonix Inj) 40 mg Q12H IV PUSH 03/06/17 09:00 03/06/17 22:17 (Toprol Xl) 50 mg DAILY PO 03/07/17 09:30 Hydralazine HCl 10 mg 10 mg Q8HR PO 03/07/17 09:30 (NS 1000 ml Inj) 1,000 ml @ 0 mls/hr Q0M PRN IV 03/07/17 09:56 Heparin Sodium (Porcine) 8000 units 8,000 units UNSCH PRN IVF 03/07/17 10:00 Sodium Chloride 1,000 ml @ 200 mls/hr Q5H PRN IV 03/07/17 09:56 (NS 1000 ml Inj) 1,000 ml @ 0 mls/hr Q0M PRN IV 03/07/17 09:56 (Mannitol Inj) 12.5 gm UNSCH PRN IV 03/07/17 10:00 (Albumin 25% Inj) 25 gm UNSCH PRN IV 03/07/17 10:00 (NS Flush) 5 ml UNSCH PRN IV FLUSH 03/07/17 10:00 (Heparin Inj) UNSCH PRN .XX 03/07/17 10:00 (Gentamicin (Dialysis) Inj) 20 mg UNSCH PRN IV 03/07/17 10:00 (Zofran Inj) 4 mg UNSCH PRN IV 03/07/17 10:00 (Tylenol) 650 mg UNSCH PRN PO 03/07/17 10:00 (Benadryl) 25 mg UNSCH PRN PO 03/07/17 10:00 (Nitrostat Sl) 0.4 mg UNSCH PRN SL 03/07/17 10:00 (Catapres) 0.1 mg UNSCH PRN PO 03/07/17 10:00 (Epogen Inj) 2,000 units UNSCH PRN IV 03/07/17 10:00 (Gelfoam 12 Mm/7 Mm Top) 1 foam UNSCH PRN TOP 03/07/17 10:00 Family History no hx of renal disorders Social History no smoking no ETOH , lives with ambulatory full code (Rossy Presley) Physical Exam Vital Signs Vital Signs Date Time Temp Pulse Resp B/P Pulse Ox O2 Delivery O2 Flow Rate FiO2 03/07/17 07:43 96.4 65 17 180/73 97 03/07/17 04:34 97.3 60 21 130/70 97 03/07/17 00:15 96.7 60 22 151/67 97 03/06/17 21:10 60 03/06/17 20:00 96.8 66 19 173/73 97 03/06/17 14:32 98.4 16 168/88 95 03/06/17 12:00 98.5 67 18 191/81 98 Physical Exam Obese female patient, awake/alert seen on hemodialysis, left arm AVF S1/S2, regular rate and rhythm Lungs: clear in all saul Abd: soft, non tender, no pain Ext: no edema, AVF accessed during HD Laboratory Laboratory Tests Test 6/02/1503/06/17 03/07/17 14:44 17:25 06:45 Troponin I 0.02 Urine Color YELLOW Urine Turbidity CLEAR Urine pH 7.0 Urine Specific [place] 1.013 Urine Protein 100 Urine Glucose (UA) 70 Urine Ketones NEG Urine Occult Blood NEG Urine Nitrite NEG Urine Bilirubin NEG Urine Urobilinogen 2.0 Urine Leukocyte Esterase SMALL Urine RBC 1 Urine WBC 8 Urine Squamous Epithelial 1 Cells Microscopic Urinalysis Comment CULTURE INDICATED White Blood Count 5.9 Red Blood Count 3.10 Hemoglobin 10.3 Hematocrit 30.1 Mean Corpuscular Volume 97.2 Mean Corpuscular Hemoglobin 33.1 Mean Corpuscular Hemoglobin 34.1 Concent Red Cell Distribution Width 14.2 Platelet Count 157 Mean Platelet Volume 9.4 Neutrophils (%) (Auto) 64.5 Lymphocytes (%) (Auto) 22.6 Monocytes (%) (Auto) 9.0 Eosinophils (%) (Auto) 3.5 Basophils (%) (Auto) 0.4 Neutrophils # (Auto) 3.8 Lymphocytes # (Auto) 1.3 Monocytes # (Auto) 0.5 Eosinophils # (Auto) 0.2 Basophils # (Auto) 0.0 CBC Comment DIFF FINAL Differential Comment Sodium Level 140 Potassium Level 5.5 Chloride Level 106 Carbon Dioxide Level 25.9 Anion Gap 8 Blood Urea Nitrogen 56 Creatinine 8.90 Estimat Glomerular Filtration 5 Rate Random Glucose 121 Calcium Level 7.7 Total Bilirubin 0.4 Aspartate Amino Transf 28 (AST/SGOT) Alanine Aminotransferase 31 (ALT/SGPT) Alkaline Phosphatase 103 Total Protein 6.8 Albumin 2.8 Free Thyroxine 1.08 Free Triiodothyronine (T3) 2.10 pg/dL Date/Time Procedure Status Source Growth 03/06/17 17:25 Urine Culture Received Urine Clean Catch Pending (Rossy PresleyP) Result Diagram: 03/07/17 0645 03/07/17 0645 Imaging Last [address] 03/06/1750 Signed Impressions: Service Date/Time: Monday, March 06, 2017 01:20 - CONCLUSION: Normal examination. Ted Mi MD Chest X-Ray 03/06/1750 Signed Impressions: Service Date/Time: Monday, March 06, 2017 01:14 - CONCLUSION: Normal examination. Ted Mi MD (Rossy Presley) Assessment and Plan Problem List: (1) ESRD on hemodialysis Plan: seen during dialysis on a 2K, 350 BFR, goal 2L continue TTS HD support no acute renal concerns avoid IVF, gadolinium stable from renal perspective continue Renvela for metabolic bone disorder (2) DM (diabetes mellitus) Plan: insulin as needed to maintain glucose 140-180 mg/dL. (3) HTN (hypertension) Plan: resume home medications (4) Syncope Plan: near syncope-continue work up per admitting team Echo report pending (5) Anemia Plan: epogen with HD (Rossy Presley) Assessment and Plan patient was seen and examined during HD. Agree with above assessment and plan. She can be discharged from renal standpoint. (Naren Fernandez MD) Problem Qualifiers (1) Syncope: Qualified Code: R55 - Syncope, unspecified syncope type Rossy Presley Mar 07, 2017 11:36 Naren Fernandez MD Mar 07, 2017 15:13
[2017-03-07] MEDS: SODIUM CHLORIDE 0.9% FLUSH 10 ML FLUSH IV FLUSH SCH ×2 (14:25→20:20)
[2017-03-07] MEDS: METOPROLOL SUCCINATE 50 MG EXTENDED RELEASE TAB PO SCH (14:26)
[2017-03-07] MEDS: FLUoxetine HCL 20 MG CAP PO SCH (14:26)
[2017-03-07] MEDS: PANTOPRAZOLE SODIUM 40 MG VIAL IV PUSH SCH ×2 (14:26→20:20)
--- NOTE | 2017-03-07 15:14 | HHI.PR ---
Subjective Remarks Patient seen earlier at 1513 hrs. The patient feels much better, denies dizziness, lightheadedness Denies chest pain or shots of breath States she feels tired. Objective Vitals Vital Signs Date Time Temp Pulse Resp B/P Pulse Ox O2 Delivery O2 Flow Rate FiO2 03/07/17 14:11 98.0 70 19 134/60 99 03/07/17 08:00 60 03/07/17 07:43 96.4 65 17 180/73 97 03/07/17 04:34 97.3 60 21 130/70 97 03/07/17 00:15 96.7 60 22 151/67 97 03/06/17 21:10 60 03/06/17 20:00 96.8 66 19 173/73 97 I/O 03/06/17 03/06/17 03/06/17 03/07/17 03/07/17 03/07/17 07:00 15:00 23:00 07:00 15:00 23:00 Output Total 4300 ml Balance -4300 ml Output Hemodialysis 4300 ml # Voids 2 # Bowel Movements 0 Result Diagram: 03/07/17 0645 03/07/17 0645 Imaging Last Impressions Carotid Artery Ultrasound 03/07/17 0000 Signed Impressions: Service Date/Time: Tuesday, March 07, 2017 17:37 - CONCLUSION: 1. No hemodynamically significant stenosis in either carotid artery. Mt Wong MD Head CT 03/06/1750 Signed Impressions: Service Date/Time: Monday, March 06, 2017 01:20 - CONCLUSION: Normal examination. Ted Mi MD Chest X-Ray 03/06/1750 Signed Impressions: Service Date/Time: Monday, March 06, 2017 01:14 - CONCLUSION: Normal examination. Ted Mi MD Objective Remarks GENERAL: Very pleasant middle-aged white female in no acute distress. HEENT: PERRLA, EOMI. No scleral icterus or conjunctival pallor. No lid lag or facial droop. Dry mucous membranes, Dehydrated. CARDIOVASCULAR: Regular rate and rhythm. No obvious murmurs to auscultation. No chest tenderness to palpation. RESPIRATORY: No obvious rhonchi or wheezing. Clear to auscultation. Breath sounds equal bilaterally. GASTROINTESTINAL: Abdomen soft, non-tender, nondistended. BS normal. MUSCULOSKELETAL: Extremities without clubbing, cyanosis, or edema. No obvious deformities. NEUROLOGICAL: Awake, alert and oriented x4. No focal neurologic deficits. Moving both upper and lower extremities spontaneously. Procedures None Medications and IVs Current Medications Medications (Trade) Dose Ordered Sig/Jorgito Route Start Time Stop Time Status Last Admin (D50w (Vial) Inj) 50 ml UNSCH PRN IV 03/06/17 03:45 (Glucagon Inj) 1 mg UNSCH PRN OTHER 03/06/17 03:45 (NS Flush) 2 ml UNSCH PRN IV FLUSH 03/06/17 03:45 (NS Flush) 2 ml BID IV FLUSH 03/06/17 09:00 03/07/17 14:25 (Zofran Inj) 4 mg Q6H PRN IVP 03/06/17 03:45 (Heparin Inj) 5,000 units Q12H SQ 03/06/17 09:00 03/07/17 16:21 (Tylenol) 650 mg Q6H PRN PO 03/06/17 03:45 ([place] 5-325 Mg) 1 tab Q4H PRN PO 03/06/17 03:45 (Morphine Inj) 2 mg Q3H PRN IV 03/06/17 03:45 (Marilyn-Colace) 1 tab BID PO 03/06/17 09:00 03/06/17 22:18 (Milk Of Magnesia Liq) 30 ml Q12H PRN PO 03/06/17 03:45 (Senokot) 17.2 mg Q12H PRN PO 03/06/17 03:45 (Dulcolax Supp) 10 mg DAILY PRN RECTAL 03/06/17 03:45 (Lactulose Liq) 30 ml DAILY PRN PO 03/06/17 03:45 (PROzac) 40 mg DAILY PO 03/06/17 09:00 03/07/17 14:26 (Synthroid) 50 mcg DAILY@0600 PO 03/06/17 06:00 03/07/17 06:06 (Renvela) 800 mg TID PO 03/06/17 09:00 03/07/17 18:01 (Hytrin) 10 mg HS PO 03/06/17 21:00 03/06/17 22:18 (Protonix Inj) 40 mg Q12H IV PUSH 03/06/17 09:00 03/07/17 14:26 (Toprol Xl) 50 mg DAILY PO 03/07/17 09:30 03/07/17 14:26 Hydralazine HCl 10 mg 10 mg Q8HR PO 03/07/17 09:30 03/07/17 14:26 (NS 1000 ml Inj) 1,000 ml @ 0 mls/hr Q0M PRN IV 03/07/17 09:56 Heparin Sodium (Porcine) 8000 units 8,000 units UNSCH PRN IVF 03/07/17 10:00 Sodium Chloride 1,000 ml @ 200 mls/hr Q5H PRN IV 03/07/17 09:56 (NS 1000 ml Inj) 1,000 ml @ 0 mls/hr Q0M PRN IV 03/07/17 09:56 (Mannitol Inj) 12.5 gm UNSCH PRN IV 03/07/17 10:00 (Albumin 25% Inj) 25 gm UNSCH PRN IV 03/07/17 10:00 (NS Flush) 5 ml UNSCH PRN IV FLUSH 03/07/17 10:00 (Heparin Inj) UNSCH PRN .XX 03/07/17 10:00 (Gentamicin (Dialysis) Inj) 20 mg UNSCH PRN IV 03/07/17 10:00 (Zofran Inj) 4 mg UNSCH PRN IV 03/07/17 10:00 (Tylenol) 650 mg UNSCH PRN PO 03/07/17 10:00 (Benadryl) 25 mg UNSCH PRN PO 03/07/17 10:00 (Nitrostat Sl) 0.4 mg UNSCH PRN SL 03/07/17 10:00 (Catapres) 0.1 mg UNSCH PRN PO 03/07/17 10:00 (Epogen Inj) 2,000 units UNSCH PRN IV 03/07/17 10:00 (Gelfoam 12 Mm/7 Mm Top) 1 foam UNSCH PRN TOP 03/07/17 10:00 Urinary Catheter: No A/P Problem List: (1) Syncope ICD Code: R55 Status: Acute (2) Dehydration ICD Code: E86.0 Status: Acute (3) ESRD on hemodialysis ICD Code: N18.6 Status: Acute (4) HTN (hypertension) ICD Code: I10 Status: Acute (5) DM (diabetes mellitus) ICD Code: E11.9 Status: Acute Assessment and Plan 1. Syncope: acute onset of dizziness/lightheadedness after standing, likely vasovagal event, transient confusion, now resolved. CT Head w/ no acute findings, CXR negative, images reviewed by me. 03/07 troponin negative x3. Follow-up 2-D echocardiogram results, check carotid Dopplers and orthostatic blood pressure. 2. Dehydration: +dehydration on exam, dry mucous membranes. sp IV fluid bolus for hydration. 3. Elevated lipase: Lipase 432. Denies nausea, vomiting or abdominal pain. Change Protonix IV to by mouth. Lipase trended down to normal at 318. 4. ESRD on HD: //Mon, following w/ Dr. Geronimo Tello, last HD Monday without complications. Will consult Nephrology. 5. HTN: Uncontrolled. BP 232/100, HR 60 on arrival. Blood pressures very elevated with a systolic blood pressure into the 180s. Continue Terazosyn. I will switch metoprolol tartrate to metoprolol succinate 50 minutes by mouth daily. Start the patient hydralazine 10 g by mouth every 8 hours. Continue clonidine when necessary. 6. DM: Sliding scale w/ Accu-Cheks. Hemoglobin A1c 6.8. Diabetes is controlled. Blood sugar remained stable. 7. Hyperkalemia: Mild hyperkalemia with a potassium 5.5. The patient is status post hemodialysis today. 8. Hypothyroidism: Patient has an elevated TSH of 3.870, normal free T4 and low free T3. I will start the patient on levothyroxine. 9. Abnormal urinalysis: Urine culture concurrent with contamination. 7. DVT Prophylaxis: Heparin sq Discharge Planning Discharged after stabilization of blood pressure and to the echocardiogram results. Problem Qualifiers (1) Syncope: Qualified Code: R55 - Syncope, unspecified syncope type Hemanth Samson MD Mar 07, 2017 15:14
[2017-03-07] MEDS: HEPARIN SODIUM - SQ 10,000 UNITS/ML VIAL SQ SCH ×2 (16:21→20:26)
--- NOTE | 2017-03-07 18:28 | RADRPT ---
EXAM DATE/TIME: 03/07/2017 17:37 [facility] COMPARISON: No previous studies available for comparison. INDICATIONS : Syncope. MEDICAL HISTORY : Hypercholesterolemia. Hypertension. Gastroesophageal reflux disease. Thyroid disease. TIA. Diabetic n europathy feet and hands. Chronic kidney disease. Arhtirits. Renal calculi. Gout. Diabetes. Anemia. D epression. SURGICAL HISTORY : Cholecystectomy. Tubal ligation. section. Cardiac cath. Hernia repair x2. Blood transfusions . ENCOUNTER: Initial ACUITY: 1 week PAIN SCORE: 0/10 LOCATION: Bilateral neck PEAK SYSTOLIC VELOCITIES (cm/sec): ICA/CCA RATIO: Right: 1.2 Left: 1.3 ICA: Right: 98 Left: 118 CCA: Right: 81 Left: 90 ECA: Right: 86 Left: 103 VERTEBRAL: Right: 67 antegrade Left: 48 antegrade Elevated flow velocities and ICA/CCA ratios have been found to correlate with increased degrees of vessel stenosis, calculated as percentage of diameter relative to a normal segment of distal ICA/CCA FINDINGS: RIGHT CAROTID: No significant stenosis is visualized. Mild plaque. The waveforms are within normal limits. LEFT CAROTID: No significant stenosis is visualized. Mild plaque. The waveforms are within normal limits. VERTEBRAL ARTERIES: Antegrade flow is seen in both vertebral arteries. MISCELLANEOUS: None. CONCLUSION: 1. No hemodynamically significant stenosis in either carotid artery. Mt Wong MD on March 07, 2017 at 18:24 Board Certified Radiologist. This report was verified electronically.
[2017-03-07] MEDS: TERAZOSIN HCL 5 MG CAP PO SCH (20:25)
[2017-03-08] VITALS (8 sets, daily range): BP systolic 138–210; BP diastolic 63–99; PULSE 63–75; RESP 16–20; TEMP 97.6–98.1; O2SAT 95–97
[2017-03-08] MEDS: hydrALAZINE HCL 10 MG TAB PO SCH (06:15)
[2017-03-08] MEDS: LEVOTHYROXINE SODIUM 50 MCG TAB PO SCH (06:15)
[2017-03-08] MEDS: INSULIN ASPART SUPPLEMENTAL SCALE SQ SCH ×4 (06:16→21:33)
[2017-03-08] MEDS: DOCUSATE SODIUM 50 MG/SENNA 8.6 MG TAB PO SCH ×2 (09:00→21:00)
--- NOTE | 2017-03-08 09:05 | PD.PN.STU ---
Subjective Remarks Patient states that she is doing well and had no acute changes over night. She denies chest pain, shortness of breath, and denies any syncopal episodes. She is able to ambulate well without assistance. She wants to go home. Objective Vitals Vital Signs Date Time Temp Pulse Resp B/P Pulse Ox O2 Delivery O2 Flow Rate FiO2 03/08/17 07:54 98.1 63 16 179/80 96 167/66 158/73 03/08/17 04:26 98.0 65 20 196/85 95 03/07/17 23:43 98.5 69 20 137/63 95 03/07/17 20:26 96 03/07/17 19:29 98.5 80 20 119/57 96 177/79 163/80 03/07/17 15:27 98.0 68 16 177/88 95 181/84 183/81 03/07/17 14:11 98.0 70 19 134/60 99 I/O 03/07/17 03/07/17 03/07/17 03/08/17 03/08/17 03/08/17 07:00 15:00 23:00 07:00 15:00 23:00 Output Total 4300 ml Balance -4300 ml Output Hemodialysis 4300 ml # Voids 2 # Bowel Movements 0 Result Diagram: 03/07/17 0645 03/07/17 0645 Objective Remarks GENERAL: Very pleasant middle-aged white female in no acute distress. She is able to maintain adequate conversation with eye contact. CARDIOVASCULAR: Regular rate and rhythm. No obvious murmurs to auscultation. No chest tenderness to palpation. RESPIRATORY: Clear to auscultation bilaterally with equal breath sounds. No wheezing or rhonchi. GASTROINTESTINAL: Abdomen soft, non-tender, nondistended. BS normal. MUSCULOSKELETAL: Extremities without clubbing, cyanosis, or edema. No obvious deformities. NEUROLOGICAL: Awake, alert and oriented x4. No focal neurologic deficits. Moving both upper and lower extremities spontaneously. A/P Assessment and Plan 1. Acute onset of dizziness/lightheadedness after standing: vasovagal vs. orthostatic vs. cardiogenic vs. neurologic. Likely vasovagal event due to symptoms occurring upon standing from seating position. Symptoms resolved minutes later. Less likely cardiogenic with no history of cardiac arrhythmias, valvular disease, no hx of PR. BNP was slightly elevated at 162. Echo results are pending. Cardiac enzymes were negative. CXR negative. Less likely neurological, denies neurological symptoms or residual weakness. CT head was negative. - Carotid DS was negative. - Orthostatic blood pressure reading was positive. Decrease of 20mmHg once in standing position. - Echocardiogram results still pending. 2. ESRD: currently on hemodialysis for the past 3.5 years 3. Hypertension: BP this morning was 196/85. - Refractory to medication management with metoprolol, hydralazine, terazosin, clonidine as needed. 4. DM: Hgb A1c 6.8, random blood glucose 121. Currently taking insulin on sliding scale. Charlotte Spence M3 Mar 08, 2017 09:05
[2017-03-08] MEDS: PANTOPRAZOLE SODIUM 40 MG VIAL IV PUSH SCH (09:24)
[2017-03-08] MEDS: SODIUM CHLORIDE 0.9% FLUSH 10 ML FLUSH IV FLUSH SCH ×2 (09:24→21:30)
[2017-03-08] MEDS: METOPROLOL SUCCINATE 50 MG EXTENDED RELEASE TAB PO SCH (09:25)
[2017-03-08] MEDS: FLUoxetine HCL 20 MG CAP PO SCH (09:25)
[2017-03-08] MEDS: SEVELAMER CARBONATE 800 MG TAB PO SCH ×3 (09:25→18:08)
[2017-03-08] MEDS: HEPARIN SODIUM - SQ 10,000 UNITS/ML VIAL SQ SCH ×2 (09:26→21:38)
--- NOTE | 2017-03-08 09:33 | HHI.NPPN ---
Subjective Complaints: Obesity General Problems: Anemia, Hypertension Renal Failure: Chronic, End Stage Renal Disease Interval History Sitting on edge of bed. She had dialysis yesterday. No further episodes of dizziness. (Rossy Presley) Review of Systems General General Remarks no acute complaints (Rossy Presley) Objective Data Data 03/07/17 03/08/17 19:00 07:00 Output Total 4300 ml Balance -4300 ml Output Hemodialysis 4300 ml Vital Signs Date Time Temp Pulse Resp B/P Pulse Ox O2 Delivery O2 Flow Rate FiO2 03/08/17 07:54 98.1 63 16 179/80 96 167/66 158/73 03/08/17 04:26 98.0 65 20 196/85 95 03/07/17 23:43 98.5 69 20 137/63 95 03/07/17 20:26 96 03/07/17 19:29 98.5 80 20 119/57 96 177/79 163/80 03/07/17 15:27 98.0 68 16 177/88 95 181/84 183/81 03/07/17 14:11 98.0 70 19 134/60 99 (Rossy Presley) -: 03/07/17 0645 03/07/17 0645 Imaging Last 72 hours Impressions Carotid Artery Ultrasound 03/07/17 0000 Signed Impressions: Service Date/Time: Tuesday, March 07, 2017 17:37 - CONCLUSION: 1. No hemodynamically significant stenosis in either carotid artery. Mt Wong MD Head CT 03/06/1750 Signed Impressions: Service Date/Time: Monday, March 06, 2017 01:20 - CONCLUSION: Normal examination. Ted Mi MD Chest X-Ray 03/06/1750 Signed Impressions: Service Date/Time: Monday, March 06, 2017 01:14 - CONCLUSION: Normal examination. Ted Mi MD (Rossy Presley) Physical Exam General Appearance: Well Developed, Well Nourished, No Acute Distress, Comfortable, Obese (Rossy Presley) Throat Throat Exam: Oral Mucosa [place] & Moist (Rossy Presley) Pulmonary Resp Exam: Clear Bilaterally, Breath Sounds Equal (Rossy Presley) Cardiology CV Exam: Regular, Normal Sinus Rhythm, Good Perfusion (Rossy Presley) Gastrointestinal/Abdomen GI Exam: Soft, Non-Tender, Bowel Sounds Present (Rossy Presley) Musculoskeletal MS Exam: Joints Intact, Normal Gait, Normal Tone, Good Strength (Rossy Presley) Integumentary Skin Exam: Clear, Warm, Dry, Intact (Rossy Prseley) Extremeties Extremities Exam: No Edema, Pedal Pulses Palpable (Rossy Presley) Neurologic Neuro Exam: Alert, Awake, Oriented, Speech Clear, Moving All Extremities ( Rossy Presley) Psychiatric Psych Exam: Appropriate Responses (Rossy Presley) Assessment/Plan Discussed Condition With: Patient Assessment Summary: Anemia of CKD, End Stage Renal Disease Problem List: (1) ESRD on hemodialysis Plan: continue TTS HD support. She had 4300 ml UF yesterday no acute renal concerns avoid IVF, gadolinium stable from renal perspective she has functioning fistula for dialysis continue Renvela for metabolic bone disorder (2) DM (diabetes mellitus) Plan: A1c 6.8% continue insulin as needed to maintain glucose 140-180 mg/dL. (3) HTN (hypertension) Plan: on metoprolol, hydralazine, terazosin monitor BP (4) Syncope Plan: near syncope-continue work up per admitting team carotid US negative for occlusion Echo report pending (5) Anemia Plan: epogen with HD (6) Metabolic bone disease Plan: Renvela with meals obtain phosphorus level intermittently (Rossy Presley) Plan patient was seen and examined. Agree with above assessment and plan. She can be discharged from renal standpoint. (Naren Fernandez MD) Problem Qualifiers (1) Syncope: Qualified Code: R55 - Syncope, unspecified syncope type Rossy Presley Mar 08, 2017 09:33 Naren Fernandez MD Mar 08, 2017 10:21
[2017-03-08] MEDS ORDERED: DOXAZOSIN MESYLATE 2 MG TAB PO SCH (09:45)
[2017-03-08 10:44] LABS: HEMATOCRIT 32.9 % (35.0-46.0); MEAN CELL VOLUME 97.3 FL (80.0-100.0); MEAN CORPUSCULAR HEMOGLOBIN 31.8 PG (27.0-34.0); MEAN CORPUSCULAR HGB CONC 32.7 % (32.0-36.0); PLATELET COUNT 123 TH/MM3 (150-450); RED BLOOD COUNT 3.39 MIL/MM3 (4.00-5.30); RED CELL DISTRIBUTION WIDTH 13.8 % (11.6-17.2); REVIEW FLAG FINAL; WHITE BLOOD COUNT 5.3 TH/MM3 (4.0-11.0)
[2017-03-08 10:55] LABS: BICARBONATE 26.1 MEQ/L (21.0-32.0); POTASSIUM 4.8 MEQ/L (3.5-5.1)
[2017-03-08] MEDS: hydrALAZINE HCL 25 MG TAB PO SCH ×2 (14:29→22:22)
--- NOTE | 2017-03-08 17:30 | ECHRPT ---
Indication: Cardiomyopathy, unspecified CONCLUSIONS Mild concentric left ventricular hypertrophy. The left ventricular systolic function is mildly reduced with an estimated ejection fraction in the range of 45-50%. The right ventricle is mildly dilated. The left atrial size is upper limits of normal. Mild mitral valve regurgitation. Trace aortic valve regurgitation. There is mild tricuspid valve regurgitation. Mild to moderate pulmonary hypertension. BP: 191 / 87 HR: 66 Rhythm: Sinus MEASUREMENTS (Male / Female) Normal Values Technical Quality:Fair 2D ECHO LV Diastolic Diameter PLAX 4.6 cm 4.2 - 5.9 / 3.9 - 5.3 cm LV Systolic Diameter PLAX 3.6 cm IVS Diastolic Thickness 1.1 cm 0.6 - 1.0 / 0.6 - 0.9 cm LVPW Diastolic Thickness 1.1 cm 0.6 - 1.0 / 0.6 - 0.9 cm LV Relative Wall Thickness 0.5 RV Internal Dim ED PLAX 2.3 cm LA Systolic Diameter LX 3.7 cm 3.0 - 4.0 / 2.7 - 3.8 cm DOPPLER MV Peak Velocity 135.0 cm/s MV Peak Gradient 7.3 mmHg MV Mean Velocity 68.8 cm/s MV Mean Gradient 2.0 mmHg Mitral E Point Velocity 74.5 cm/s Mitral A Point Velocity 67.1 cm/s Mitral E to A Ratio 1.1 LV E' Lateral Velocity 8.1 cm/s Mitral E to LV E' Lateral Ratio 9.2 LV E' Septal Velocity 8.0 cm/s Mitral E to LV E' Septal Ratio 9.3 TR Peak Velocity 342.0 cm/s TR Peak Gradient 46.8 mmHg FINDINGS Left Ventricle Mild concentric left ventricular hypertrophy. The left ventricular systolic function is mildly reduced with an estimated ejection fraction in the range of 45-50%. Right Ventricle The right ventricle is mildly dilated. Left Atrium The left atrial size is upper limits of normal. Right Atrium The right atrial size is normal. Atrial Septum Normal atrial septal thickness without atrial level shunting by limited color doppler interrogation. Aorta The aortic root and proximal ascending aorta are normal in size on limited imaging. Mitral Valve Mild mitral valve regurgitation. Aortic Valve Trace aortic valve regurgitation. Tricuspid Valve There is mild tricuspid valve regurgitation. Pulmonary Valve The pulmonary valve is not well visualized. Vessels The inferior vena cava is normal in size. Pericardium No pericardial effusion. Shakila Pathak MD, FACC Edited by: [employer] Winder (Electronically Signed) Final Date:08 March 2017 17:30 Amended: 09 March 2017 13:46 MTDD
[2017-03-08] MEDS: TERAZOSIN HCL 5 MG CAP PO SCH (21:31)
[2017-03-08] MEDS: PANTOPRAZOLE SOD 40 MG DELAYED RELEASE TAB PO SCH (21:31)
[2017-03-09] VITALS (10 sets, daily range): BP systolic 145–208; BP diastolic 65–88; PULSE 58–80; RESP 16–20; TEMP 97.8–98.4; O2SAT 95–97
[2017-03-09] MEDS: hydrALAZINE HCL 25 MG TAB PO SCH ×2 (06:14→14:15)
[2017-03-09] MEDS: LEVOTHYROXINE SODIUM 75 MCG TAB PO SCH (06:14)
[2017-03-09] MEDS: INSULIN ASPART SUPPLEMENTAL SCALE SQ SCH ×4 (06:15→21:03)
[2017-03-09 07:55] LABS: BICARBONATE 26.5 MEQ/L (21.0-32.0); POTASSIUM 4.7 MEQ/L (3.5-5.1)
--- NOTE | 2017-03-09 08:31 | HHI.PR ---
Subjective Remarks Deferred entry - patient seen at 4:30 pm on 03/08/17 Patient denies dizziness, cp or sob BP very elevated earlier in the day Objective Vitals Vital Signs Date Time Temp Pulse Resp B/P Pulse Ox O2 Delivery O2 Flow Rate FiO2 03/09/17 07:39 97.9 68 20 186/81 97 206/86 163/75 03/09/17 05:57 97.9 65 20 145/65 95 03/09/17 00:19 98.0 69 20 174/77 96 03/08/17 23:33 66 03/08/17 21:20 210/99 03/08/17 21:14 98.0 64 146/66 96 178/79 03/08/17 15:25 97.8 67 16 142/66 97 03/08/17 11:35 97.6 64 16 138/63 97 03/08/17 09:25 75 Result Diagram: 03/08/17 1020 03/09/17 0700 Imaging Last Impressions Carotid Artery Ultrasound 03/07/17 0000 Signed Impressions: Service Date/Time: Tuesday, March 07, 2017 17:37 - CONCLUSION: 1. No hemodynamically significant stenosis in either carotid artery. Mt Wong MD Head CT 03/06/1750 Signed Impressions: Service Date/Time: Monday, March 06, 2017 01:20 - CONCLUSION: Normal examination. Ted Mi MD Chest X-Ray 03/06/1750 Signed Impressions: Service Date/Time: Monday, March 06, 2017 01:14 - CONCLUSION: Normal examination. Ted Mi MD Objective Remarks GENERAL: Very pleasant middle-aged white female in no acute distress. HEENT: PERRLA, EOMI. No scleral icterus or conjunctival pallor. No lid lag or facial droop. Dry mucous membranes, Dehydrated. CARDIOVASCULAR: Regular rate and rhythm. No obvious murmurs to auscultation. No chest tenderness to palpation. RESPIRATORY: No obvious rhonchi or wheezing. Clear to auscultation. Breath sounds equal bilaterally. GASTROINTESTINAL: Abdomen soft, non-tender, nondistended. BS normal. MUSCULOSKELETAL: Extremities without clubbing, cyanosis, or edema. No obvious deformities. NEUROLOGICAL: Awake, alert and oriented x4. No focal neurologic deficits. Moving both upper and lower extremities spontaneously. Procedures None Medications and IVs Current Medications Medications (Trade) Dose Ordered Sig/Jorgito Route Start Time Stop Time Status Last Admin (D50w (Vial) Inj) 50 ml UNSCH PRN IV 03/06/17 03:45 (Glucagon Inj) 1 mg UNSCH PRN OTHER 03/06/17 03:45 (NS Flush) 2 ml UNSCH PRN IV FLUSH 03/06/17 03:45 (NS Flush) 2 ml BID IV FLUSH 03/06/17 09:00 03/08/17 21:30 (Zofran Inj) 4 mg Q6H PRN IVP 03/06/17 03:45 (Heparin Inj) 5,000 units Q12H SQ 03/06/17 09:00 03/08/17 21:38 (Tylenol) 650 mg Q6H PRN PO 03/06/17 03:45 (Manquin 5-325 Mg) 1 tab Q4H PRN PO 03/06/17 03:45 (Morphine Inj) 2 mg Q3H PRN IV 03/06/17 03:45 (Marilyn-Colace) 1 tab BID PO 03/06/17 09:00 03/06/17 22:18 (Milk Of Magnesia Liq) 30 ml Q12H PRN PO 03/06/17 03:45 (Senokot) 17.2 mg Q12H PRN PO 03/06/17 03:45 (Dulcolax Supp) 10 mg DAILY PRN RECTAL 03/06/17 03:45 (Lactulose Liq) 30 ml DAILY PRN PO 03/06/17 03:45 (PROzac) 40 mg DAILY PO 03/06/17 09:00 03/08/17 09:25 (Renvela) 800 mg TID PO 03/06/17 09:00 03/08/17 18:08 (Hytrin) 10 mg HS PO 03/06/17 21:00 03/08/17 21:31 Metoprolol Succinate 50 mg 50 mg DAILY PO 03/07/17 09:30 03/08/17 09:25 (NS 1000 ml Inj) 1,000 ml @ 0 mls/hr Q0M PRN IV 03/07/17 09:56 Heparin Sodium (Porcine) 8000 units 8,000 units UNSCH PRN IVF 03/07/17 10:00 Sodium Chloride 1,000 ml @ 200 mls/hr Q5H PRN IV 03/07/17 09:56 (NS 1000 ml Inj) 1,000 ml @ 0 mls/hr Q0M PRN IV 03/07/17 09:56 (Mannitol Inj) 12.5 gm UNSCH PRN IV 03/07/17 10:00 (Albumin 25% Inj) 25 gm UNSCH PRN IV 03/07/17 10:00 (NS Flush) 5 ml UNSCH PRN IV FLUSH 03/07/17 10:00 (Heparin Inj) UNSCH PRN .XX 03/07/17 10:00 (Gentamicin (Dialysis) Inj) 20 mg UNSCH PRN IV 03/07/17 10:00 (Zofran Inj) 4 mg UNSCH PRN IV 03/07/17 10:00 (Tylenol) 650 mg UNSCH PRN PO 03/07/17 10:00 (Benadryl) 25 mg UNSCH PRN PO 03/07/17 10:00 (Nitrostat Sl) 0.4 mg UNSCH PRN SL 03/07/17 10:00 (Catapres) 0.1 mg UNSCH PRN PO 03/07/17 10:00 (Epogen Inj) 2,000 units UNSCH PRN IV 03/07/17 10:00 (Gelfoam 12 Mm/7 Mm Top) 1 foam UNSCH PRN TOP 03/07/17 10:00 (Apresoline) 25 mg Q8HR PO 03/08/17 14:00 03/09/17 06:14 (Synthroid) 75 mcg DAILY@0600 PO 03/09/17 06:00 03/09/17 06:14 (Protonix) 40 mg Q12H PO 03/08/17 21:00 03/08/17 21:31 Urinary Catheter: No Vascular Central Line Catheter: No A/P Problem List: (1) Syncope ICD Code: R55 Status: Acute (2) Dehydration ICD Code: E86.0 Status: Acute (3) ESRD on hemodialysis ICD Code: N18.6 Status: Acute (4) HTN (hypertension) ICD Code: I10 Status: Acute (5) DM (diabetes mellitus) ICD Code: E11.9 Status: Acute Assessment and Plan 1. Syncope: acute onset of dizziness/lightheadedness after standing, likely vasovagal event, transient confusion, now resolved. CT Head w/ no acute findings, CXR negative, images reviewed by me. 6/6 troponin negative x3. Follow-up 2-D echocardiogram results, check carotid Dopplers and orthostatic blood pressure. 6/7 Carotid dopplers negative. Echo shows ef of 45 to 50 %. Previous Echocardiogram on 2007 reported a normal EF. Will consult cardiology. Patient also with (+) orthostatics however asymptomatic. 2. Dehydration: +dehydration on exam, dry mucous membranes. sp IV fluid bolus for hydration. 3. Elevated lipase: Lipase 432. Denies nausea, vomiting or abdominal pain. Change Protonix IV to by mouth. Lipase trended down to normal at 318. 4. ESRD on HD: //Mon, following w/ Dr. Geronimo Tello, last HD Monday without complications. Appreciate nephrology recommendations. 5. HTN: Uncontrolled. BP 232/100, HR 60 on arrival. Blood pressures very elevated with a systolic blood pressure into the 180s. Continue Terazosyn. I will switch metoprolol tartrate to metoprolol succinate 50 minutes by mouth daily. Start the patient hydralazine 10 mg by mouth every 8 hours. Continue clonidine when necessary. 6/7 BP still elevated and uncontrolled. Continue Terazosin, Hydralazine dose increased to 25 mg po TID. Continue BB at same dose. 6. DM: Sliding scale w/ Accu-Cheks. Hemoglobin A1c 6.8. Diabetes is controlled. Blood sugar remained stable. 7. Hyperkalemia: Mild hyperkalemia with a potassium 5.5. The patient is status post hemodialysis today. 8. Hypothyroidism: Patient has an elevated TSH of 3.870, normal free T4 and low free T3. Continue Levothyroxine - dose increased to 75 mcg. 9. Abnormal urinalysis: Urine culture concurrent with contamination. 7. DVT Prophylaxis: Heparin sq Discharge Planning Discharged after stabilization of blood pressure and to the echocardiogram results. Problem Qualifiers (1) Syncope: Qualified Code: R55 - Syncope, unspecified syncope type Hemanth Samson MD Mar 09, 2017 08:31
--- NOTE | 2017-03-09 09:06 | HHI.NPPN ---
Subjective Complaints: Obesity General Problems: Anemia, Hypertension Renal Failure: Chronic, End Stage Renal Disease History of Present Illness Resting. She has no further complaints of dizziness or near syncope. Pending cardiology consultation. Due for dialysis. (Rossy Presley) Review of Systems General General Remarks no acute complaints (Rossy Presley) Objective Data Data Vital Signs Date Time Temp Pulse Resp B/P Pulse Ox O2 Delivery O2 Flow Rate FiO2 03/09/17 07:39 97.9 68 20 186/81 97 206/86 163/75 03/09/17 05:57 97.9 65 20 145/65 95 03/09/17 00:19 98.0 69 20 174/77 96 03/08/17 23:33 66 03/08/17 21:20 210/99 03/08/17 21:14 98.0 64 146/66 96 178/79 03/08/17 15:25 97.8 67 16 142/66 97 03/08/17 11:35 97.6 64 16 138/63 97 03/08/17 09:25 75 (Rossy Presley) -: 03/08/17 1020 03/09/17 0700 Imaging Last 72 hours Impressions Carotid Artery Ultrasound 03/07/17 0000 Signed Impressions: Service Date/Time: Tuesday, March 07, 2017 17:37 - CONCLUSION: 1. No hemodynamically significant stenosis in either carotid artery. Mt Wong MD (Rossy Presley) Physical Exam General Appearance: Well Developed, Well Nourished, No Acute Distress, Comfortable, Obese (Rossy Presley) Throat Throat Exam: Oral Mucosa [place] & Moist (Rossy Presley) Pulmonary Resp Exam: Clear Bilaterally, Breath Sounds Equal (Rossy Presley) Cardiology CV Exam: Regular, Normal Sinus Rhythm, Good Perfusion (Rossy Presley) Gastrointestinal/Abdomen GI Exam: Soft, Non-Tender, Bowel Sounds Present (Rossy Presley) Musculoskeletal MS Exam: Joints Intact, Normal Gait, Normal Tone, Good Strength (Rossy Presley) Integumentary Skin Exam: Clear, Warm, Dry, Intact (Rossy Presley) Extremeties Extremities Exam: No Edema, Pedal Pulses Palpable (Rossy Presley) Neurologic Neuro Exam: Alert, Awake, Oriented, Speech Clear, Moving All Extremities ( Rossy Presley) Psychiatric Psych Exam: Appropriate Responses (Rossy Presley) Assessment/Plan Discussed Condition With: Patient Assessment Summary: Anemia of CKD, End Stage Renal Disease Problem List: (1) ESRD on hemodialysis Plan: continue TTS HD support. She is due today no acute renal concerns avoid IVF, gadolinium stable from renal perspective she has functioning fistula for dialysis continue Renvela for metabolic bone disorder (2) DM (diabetes mellitus) Plan: A1c 6.8% continue insulin as needed to maintain glucose 140-180 mg/dL. (3) HTN (hypertension) Plan: her BP has been elevated, continue antihypertensives including metoprolol , hydralazine, terazosin the doses were increased, titrate to effectiveness monitor BP (4) Syncope Plan: near syncope-continue work up per admitting team carotid US negative for occlusion Echo report showing LVH, mild systolic dysfunction with EF 45-50% cardiology evaluation pending (5) Anemia Plan: epogen with HD (6) Metabolic bone disease Plan: continue Renvela with meals phosphorus level is in process Plan stable for discharge after dialysis when cleared by cardiology (Rossy Presley) Plan patient was seen and examined. Agree with above assessment and plan. (Naren Fernandez MD) Problem Qualifiers (1) Syncope: Qualified Code: R55 - Syncope, unspecified syncope type Rossy Presley Mar 09, 2017 09:06 Naren Fernandez MD Mar 10, 2017 16:43
[2017-03-09] MEDS: HEPARIN SODIUM - SQ 10,000 UNITS/ML VIAL SQ SCH ×2 (09:12→21:00)
--- NOTE | 2017-03-09 09:51 | HHI.PR ---
Subjective Remarks Follow up dizziness. Patient is sitting up eating breakfast. Patient denies any dizziness or chest pain today. States at home she is not very compliant with her BP medications. Sometimes she does miss some doses. Discussed with her that she will be seeing a waterproofer today for recommendations. Objective Vitals Vital Signs Date Time Temp Pulse Resp B/P Pulse Ox O2 Delivery O2 Flow Rate FiO2 03/09/17 07:39 97.9 68 20 186/81 97 206/86 163/75 03/09/17 05:57 97.9 65 20 145/65 95 03/09/17 00:19 98.0 69 20 174/77 96 03/08/17 23:33 66 03/08/17 21:20 210/99 03/08/17 21:14 98.0 64 146/66 96 178/79 03/08/17 15:25 97.8 67 16 142/66 97 03/08/17 11:35 97.6 64 16 138/63 97 Result Diagram: 03/08/17 1020 03/09/17 0700 Objective Remarks GENERAL: Very pleasant middle-aged obese white female in no acute distress. HEENT: PERRLA, EOMI. No scleral icterus or conjunctival pallor. No lid lag or facial droop. Moist mucous membranes. CARDIOVASCULAR: Regular rate and rhythm. No obvious murmurs to auscultation. No chest tenderness to palpation. RESPIRATORY: No obvious rhonchi or wheezing. Clear to auscultation. Breath sounds equal bilaterally. GASTROINTESTINAL: Abdomen soft, non-tender, nondistended. BS normal. MUSCULOSKELETAL: Extremities without clubbing, cyanosis, or edema. No obvious deformities. NEUROLOGICAL: Awake, alert and oriented x4. No focal neurologic deficits. Moving both upper and lower extremities spontaneously. Procedures None Medications and IVs Current Medications Medications (Trade) Dose Ordered Sig/Jorgito Route Start Time Stop Time Status Last Admin (D50w (Vial) Inj) 50 ml UNSCH PRN IV 03/06/17 03:45 (Glucagon Inj) 1 mg UNSCH PRN OTHER 03/06/17 03:45 (NS Flush) 2 ml UNSCH PRN IV FLUSH 03/06/17 03:45 (NS Flush) 2 ml BID IV FLUSH 03/06/17 09:00 03/08/17 21:30 (Zofran Inj) 4 mg Q6H PRN IVP 03/06/17 03:45 (Heparin Inj) 5,000 units Q12H SQ 03/06/17 09:00 03/09/17 09:12 (Tylenol) 650 mg Q6H PRN PO 03/06/17 03:45 (Maxton 5-325 Mg) 1 tab Q4H PRN PO 03/06/17 03:45 (Morphine Inj) 2 mg Q3H PRN IV 03/06/17 03:45 (Marilyn-Colace) 1 tab BID PO 03/06/17 09:00 03/06/17 22:18 (Milk Of Magnesia Liq) 30 ml Q12H PRN PO 03/06/17 03:45 (Senokot) 17.2 mg Q12H PRN PO 03/06/17 03:45 (Dulcolax Supp) 10 mg DAILY PRN RECTAL 03/06/17 03:45 (Lactulose Liq) 30 ml DAILY PRN PO 03/06/17 03:45 (PROzac) 40 mg DAILY PO 03/06/17 09:00 03/08/17 09:25 (Renvela) 800 mg TID PO 03/06/17 09:00 03/08/17 18:08 (Hytrin) 10 mg HS PO 03/06/17 21:00 03/08/17 21:31 Metoprolol Succinate 50 mg 50 mg DAILY PO 03/07/17 09:30 03/08/17 09:25 (NS 1000 ml Inj) 1,000 ml @ 0 mls/hr Q0M PRN IV 03/07/17 09:56 Heparin Sodium (Porcine) 8000 units 8,000 units UNSCH PRN IVF 03/07/17 10:00 Sodium Chloride 1,000 ml @ 200 mls/hr Q5H PRN IV 03/07/17 09:56 (NS 1000 ml Inj) 1,000 ml @ 0 mls/hr Q0M PRN IV 03/07/17 09:56 (Mannitol Inj) 12.5 gm UNSCH PRN IV 03/07/17 10:00 (Albumin 25% Inj) 25 gm UNSCH PRN IV 03/07/17 10:00 (NS Flush) 5 ml UNSCH PRN IV FLUSH 03/07/17 10:00 (Heparin Inj) UNSCH PRN .XX 03/07/17 10:00 (Gentamicin (Dialysis) Inj) 20 mg UNSCH PRN IV 03/07/17 10:00 (Zofran Inj) 4 mg UNSCH PRN IV 03/07/17 10:00 (Tylenol) 650 mg UNSCH PRN PO 03/07/17 10:00 (Benadryl) 25 mg UNSCH PRN PO 03/07/17 10:00 (Nitrostat Sl) 0.4 mg UNSCH PRN SL 03/07/17 10:00 (Catapres) 0.1 mg UNSCH PRN PO 03/07/17 10:00 (Epogen Inj) 2,000 units UNSCH PRN IV 03/07/17 10:00 (Gelfoam 12 Mm/7 Mm Top) 1 foam UNSCH PRN TOP 03/07/17 10:00 (Apresoline) 25 mg Q8HR PO 03/08/17 14:00 03/09/17 06:14 (Synthroid) 75 mcg DAILY@0600 PO 03/09/17 06:00 03/09/17 06:14 (Protonix) 40 mg Q12H PO 03/08/17 21:00 03/08/17 21:31 A/P Problem List: (1) Syncope ICD Code: R55 Status: Acute (2) Dehydration ICD Code: E86.0 Status: Acute (3) ESRD on hemodialysis ICD Code: N18.6 Status: Acute (4) HTN (hypertension) ICD Code: I10 Status: Acute (5) DM (diabetes mellitus) ICD Code: E11.9 Status: Acute Assessment and Plan Syncope, acute onset of dizziness/lightheadedness after standing, likely vasovagal event, transient confusion, now resolved. Images: CT Head w/ no acute findings, CXR negative Troponin negative x3. 2-D echocardiogram shows mild LVH, EF 45-50%, systolic function mildly reduced, mild MR,trace AR, and mild TR with mild to moderate pulmonary htn. Previous Echocardiogram on 2007 reported a normal EF. Carotid Dopplers shows no stenosis Cardiology consulted for recommendations Orthostatic blood pressure Apply Car hose PT daily, recommends no HHC Dehydration Given bolus yesterday, resolved Elevated lipase, Lipase 432, trended down to normal at 318. Denies nausea, vomiting or abdominal pain. Cont Protonix PO. ESRD on HD: T//Mon, following w/ Dr. Geronimo Tello Dialysis today, nephrology following, cleared for dc from there standpoint HTN, Uncontrolled, not compliant at home with all meds BP 232/100, HR 60 on arrival. Blood pressures very elevated with a systolic blood pressure into the 180s. Continue Terazosyn. Cont metoprolol succinate 50mg Daily. Cont hydralazine 25 mg by mouth every 8 hours. Continue clonidine PRN 1547hrs 03/09: Patient with uncontrolled HTN remains, Start procardia 30mg daily, decrease terazosin to 5mg hs, change hydralazine to prn DM, chronic, stable Hemoglobin A1c 6.8. Sliding scale w/ Accu-Cheks. Hyperkalemia, resolved 4.7 Cont to trend Hypothyroidism, chronic Patient has an elevated TSH of 3.870, normal free T4 and low free T3. Continue Levothyroxine 75 mcg. Abnormal urinalysis, no growth in 24 hours, no fevers, no leukocytosis Follow cultures DVT Prophylaxis: Heparin sq Problem Qualifiers (1) Syncope: Qualified Code: R55 - Syncope, unspecified syncope type Belinda Carlson Mar 09, 2017 09:51
[2017-03-09] MEDS: PANTOPRAZOLE SOD 40 MG DELAYED RELEASE TAB PO SCH ×2 (14:14→20:59)
[2017-03-09] MEDS: METOPROLOL SUCCINATE 50 MG EXTENDED RELEASE TAB PO SCH (14:14)
[2017-03-09] MEDS: SEVELAMER CARBONATE 800 MG TAB PO SCH ×3 (14:15→17:59)
[2017-03-09] MEDS: FLUoxetine HCL 20 MG CAP PO SCH (14:15)
[2017-03-09] MEDS: DOCUSATE SODIUM 50 MG/SENNA 8.6 MG TAB PO SCH ×2 (14:15→20:59)
[2017-03-09] MEDS: SODIUM CHLORIDE 0.9% FLUSH 10 ML FLUSH IV FLUSH SCH ×2 (14:16→20:58)
[2017-03-09] MEDS ORDERED: HYDROCHLOROTHIAZIDE 25 MG TAB PO SCH (16:00)
[2017-03-09] MEDS ORDERED: hydrALAZINE HCL 25 MG TAB PO PRN (16:00)
[2017-03-09] MEDS: NIFEdipine 30 MG SUSTAINED RELEASE TAB PO SCH (16:44)
--- NOTE | 2017-03-09 18:58 | MB ---
cc: KIMBERLYN MEEHAN MD DATE OF CONSULTATION 03/09/17 REASON FOR CONSULTATION Cardiomyopathy. HISTORY OF PRESENT ILLNESS Ms. Blanc is a 61-year-old female who does have a history of hypertension and end-stage renal disease on dialysis. She presented to the emergency room after a syncopal event. The patient notes that she has had about four weeks of being sick and has recently had some diarrhea. She notes it was not after her dialysis. She reports that she had been sitting at a computer and got up when she had the sudden onset of dizziness and became confused momentarily. She subsequently came to the emergency room where she was found to have a blood pressure of 232/100. Subsequent workup included an echocardiogram that showed an EF of 45-50%. The patient does note that she has been noncompliant with a couple of her medications that she forgets to take. SOCIAL HISTORY The patient does not drink or smoke. PAST MEDICAL HISTORY 1. Hypertension, 2. Hyperlipidemia. 3. Anemia 4. Mild coronary disease by catheterization in 2008 after two false positive stress tests 5. Congestive heart failure 6. Chronic kidney disease 7. Colon polyps, 8. Diabetes, 9. Diabetic retinopathy 10. Diverticular disease. 11. Dyspnea on exertion, 12. Hyperparathyroidism 13. Mitral regurgitation, 14. Morbid obesity. FAMILY HISTORY Noncontributory. REVIEW OF SYSTEMS Except as mentioned in HPI, all 12 systems are negative. MEDICATIONS Per the record. PHYSICAL EXAMINATION VITAL SIGNS: On physical examination vital signs 65, 177/79, respiratory rate 18. GENERAL: She is a morbidly obese female who is in no apparent distress. NECK: Free from JVD. LUNGS: A bit decreased but clear to auscultation. CARDIOVASCULAR: She has a normal S1 and S2. There is a 2/6 systolic murmur. No rubs or gallops appreciated. ABDOMEN: Soft. EXTREMITIES: Free from edema. LABORATORY DATA PLAN Creatinine of 8.28. Serial enzymes are 0.02/0.04/0.02. CARDIOLOGY STUDIES Telemetry shows normal sinus rhythm throughout. Echocardiogram does show an EF of 45-50%. IMPRESSION 1. Cardiomyopathy - the patient does have a marginally reduced EF by echocardiogram. After discussion with the patient regarding her options for further evaluation, she is not really inclined to have catheterization secondary to the contrast in losing any remaining renal function. As well, stress testing is a suboptimal option given her two prior false positive studies. We did discuss a MUGA to verify that her EF is actually reduced as I am sure her echo is a difficult study given her morbid obesity. The patient really would like to be just discharged. However, I would at least like to verify the EF prior to considering that. 2. Syncope - At this point, there does not appear to be any overt cardiac etiology. Telemetry is normal and although the echocardiogram does show some mild LV impairment, this would not have caused the syncope. It is reasonable for the patient to be discharged pending the results of her MUGA. 3. Uncontrolled hypertension - This is being managed by the primary team. Kimberlyn Meehan M.D. ATTILA/ /5:38 PM /6:34 PM
[2017-03-09] MEDS ORDERED: TERAZOSIN HCL 5 MG CAP PO SCH (21:00)
[2017-03-09] MEDS ORDERED: hydrALAZINE HCL 25 MG TAB PO SCH (22:00)
[2017-03-10 00:04] VITALS: BP_SYST 138; BP_SYST 143; BP_SYST 145; BP_DIAS 66; BP_DIAS 67; BP_DIAS 74; PULSE 77; RESP 18; TEMP 98; O2SAT 98
[2017-03-10 00:16] VITALS: PULSE 54
[2017-03-10 05:03] VITALS: BP 168/88; PULSE 77; RESP 18; TEMP 98; O2SAT 97
[2017-03-10] MEDS: LEVOTHYROXINE SODIUM 75 MCG TAB PO SCH (06:03)
[2017-03-10] MEDS: INSULIN ASPART SUPPLEMENTAL SCALE SQ SCH (06:11)
[2017-03-10 07:49] VITALS: BP_SYST 158; BP_SYST 165; BP_SYST 175; BP_DIAS 67; BP_DIAS 74; BP_DIAS 75; PULSE 68; RESP 18; TEMP 98; O2SAT 95
[2017-03-10 08:00] VITALS: PULSE 61
[2017-03-10] MEDS: SEVELAMER CARBONATE 800 MG TAB PO SCH (08:01)
[2017-03-10] MEDS: PANTOPRAZOLE SOD 40 MG DELAYED RELEASE TAB PO SCH (08:01)
[2017-03-10] MEDS: NIFEdipine 30 MG SUSTAINED RELEASE TAB PO SCH (08:01)
[2017-03-10] MEDS: DOCUSATE SODIUM 50 MG/SENNA 8.6 MG TAB PO SCH (08:02)
[2017-03-10] MEDS: SODIUM CHLORIDE 0.9% FLUSH 10 ML FLUSH IV FLUSH SCH (08:02)
[2017-03-10] MEDS: FLUoxetine HCL 20 MG CAP PO SCH (08:02)
[2017-03-10] MEDS: HEPARIN SODIUM - SQ 10,000 UNITS/ML VIAL SQ SCH (08:02)
[2017-03-10] MEDS: METOPROLOL SUCCINATE 50 MG EXTENDED RELEASE TAB PO SCH (10:26)
--- NOTE | 2017-03-10 10:47 | RADRPT ---
EXAM DATE/TIME: 03/10/2017 09:10 [facility] COMPARISON: No previous studies available for comparison. INDICATIONS : Syncopal event while on the computer at the house. DOSE: 21.7 mCi Tc99m Ultratag labeled red blood cells IV PROJECTIONS: ANT, MALIAN and LPO EF: >70 MEDICAL HISTORY : Congestive hearrt failure. Cardiovascular disease Renal disease, end stage. Hypertension. SURGICAL HISTORY : Inguinal hernia repair. Tubal ligation. Cholecystectomy. ENCOUNTER: Initial ACUITY: 1 day PAIN SCALE: 2/10 LOCATION: Bilateral chest TECHNIQUE: Following the modified in Beaker labeling of autologous red blood cells and reinjection, planar image s gated to the ECG cycle were obtained in specified projections. Fourier analysis and calculation of ejection fraction were performed. FINDINGS: CHAMBER-SIZE: There is normal size and configuration to the left ventricle, right ventricle, and atria. WALL MOTION: No wall motion abnormalities seen. No segmental hypokinesia is observed. MISCELLANEOUS: No abnormal accumulation of red cells is seen. CONCLUSION: Ejection fraction is greater than 70% with normal wall motion. Jett So MD FACR on March 10, 2017 at 10:44 Board Certified Radiologist. This report was verified electronically.
[2017-03-10 11:16] VITALS: BP 147/67; PULSE 66; RESP 20; TEMP 98; O2SAT 97
[2017-03-10] MEDS ORDERED: METO50TA11 PO (11:36)
[2017-03-10] MEDS ORDERED: TERA5CAP3 PO (11:39)
[2017-03-10] MEDS ORDERED: LEVO.075 PO (11:39)
[2017-03-10] MEDS ORDERED: NIFE30TA8 PO (11:39)
--- NOTE | 2017-03-10 11:40 | HHI.DCPOC ---
Discharge Care Plan Diagnosis: (1) Syncope (2) HTN (hypertension) (3) DM (diabetes mellitus) (4) ESRD on hemodialysis (5) Anemia Goals to Promote Your Health * To prevent worsening of your condition and complications * To maintain your health at the optimal level Directions to Meet Your Goals Take your medications as prescribed Follow your dietary instruction Follow activity as directed Keep your appointments as scheduled Take your immunizations and boosters as scheduled If your symptoms worsen call your PCP, if no PCP go to Urgent Care Center or Emergency Room Smoking is Dangerous to Your Health. Avoid second hand smoke Call the 24-hour hour crisis hotline for domestic abuse at Nida French PA-C Mar 10, 2017 11:40 am
--- NOTE | 2017-03-10 12:03 | HHI.DS ---
Discharge Summary Admission Date Mar 06, 2017 at 3:40 am Discharge Date: Mar 10, 2017 Admitting Diagnosis syncope, hypertension (1) Syncope ICD Code: R55 Diagnosis: Principal (2) Dehydration ICD Code: E86.0 Diagnosis: Secondary (3) ESRD on hemodialysis ICD Code: N18.6 Diagnosis: Secondary (4) HTN (hypertension) ICD Code: I10 Diagnosis: Secondary (5) DM (diabetes mellitus) ICD Code: E11.9 Diagnosis: Secondary Procedures None Brief History - From Admission This is a 61-year-old female with a PMH of HTN, COPD, Gout, Depression, ESRD on HD T//Mon and DM who presented to the ER after apparent syncopal event. Pt states she had been sitting at her computer for several hours, got up to go to bed and had acute onset of dizziness and confusion, Son was present at the time and assisted pt into a chair. Per Son, pt staring off and confused for a moment. Reports similar symptoms approx 10 days ago when she got up to go the bathroom, did not seek medical attention at that time. States she "had been sick" for approx 4 wks prior to first episode and had been on multiple antibiotic regimens for Bronchitis, denies steroid therapy. Also notes having dialysis on Sat as scheduled, approx 1.5L removed which is her usual. Denies fever, chills, chest pain or cough. On arrival, BP 232/100, HR 60, O2 sat 98% on RA, Afebrile. BP currently 191/87, HR 66. CBC unremarkable. Chemistry at baseline. Lipase 432. UA pending. CXR with no acute findings. CT Head normal. CBC/BMP: 03/08/17 1020 03/09/17 0700 Significant Findings Laboratory Tests Test 03/08/17 03/09/17 10:20 07:00 Red Blood Count 3.39 MIL/MM3 (4.00-5.30) Hemoglobin 10.8 GM/DL (11.6-15.3) Hematocrit 32.9 % (35.0-46.0) Platelet Count 123 TH/MM3 (150-450) Blood Urea Nitrogen 46 MG/DL (7-18) 61 MG/DL (7-18) Creatinine 7.16 MG/DL 8.28 MG/DL (0.50-1.00) (0.50-1.00) Estimat Glomerular Filtration 6 ML/MIN (>89) 5 ML/MIN (>89) Rate Random Glucose 245 MG/DL 196 MG/DL (74-106) (74-106) Calcium Level 7.7 MG/DL 7.7 MG/DL (8.5-10.1) (8.5-10.1) Imaging Last Impressions [facility] 03/10/17 Signed Impressions: Service Date/Time: Friday, March 10, 2017 09:10 - CONCLUSION: Ejection fraction is greater than 70%% with normal wall motion. Jett So MD FACR Carotid Artery Ultrasound 03/07/17 Signed Impressions: Service Date/Time: Tuesday, March 07, 2017 17:37 - CONCLUSION: 1. No hemodynamically significant stenosis in either carotid artery. Mt Wong MD Head CT 03/06/1750 Signed Impressions: Service Date/Time: Monday, March 06, 2017 01:20 - CONCLUSION: Normal examination. Ted Mi MD Chest X-Ray 03/06/1750 Signed Impressions: Service Date/Time: Monday, March 06, 2017 01:14 - CONCLUSION: Normal examination. Ted Mi MD PE at Discharge GENERAL: Very pleasant middle-aged obese white female in no acute distress. HEENT: PERRLA, EOMI. No scleral icterus or conjunctival pallor. No lid lag or facial droop. Moist mucous membranes. CARDIOVASCULAR: Regular rate and rhythm. No obvious murmurs to auscultation. No chest tenderness to palpation. RESPIRATORY: No obvious rhonchi or wheezing. Clear to auscultation. Breath sounds equal bilaterally. GASTROINTESTINAL: Abdomen soft, non-tender, nondistended. BS normal. MUSCULOSKELETAL: Extremities without clubbing, cyanosis, or edema. No obvious deformities. NEUROLOGICAL: Awake, alert and oriented x4. No focal neurologic deficits. Moving both upper and lower extremities spontaneously. Pt update on day of discharge Follow up for syncope, dizziness, uncontrolled hypertension. The patient reports feeling well today and wants to go home. Blood pressure better controlled. Denies any headache, lightheadedness, dizziness, chest pain, shortness of breath, or abdominal complaints. Hospital Course Syncope: patient presented with acute onset of dizziness/lightheadedness after standing, likely vasovagal event, transient confusion, now resolved. CT Head w/ no acute findings. CXR negative. ACS ruled out with negative cardiac enzymes x3 and EKG without acute ischemic changes. Carotid Dopplers negative for stenosis. Transthoracic echocardiogram shows mild LVH, EF 45-50%, however Cardiology consulted, requested MUGA which showed normal ejection fraction of >70%. Patient 's symptoms resolved, feels well, stable for discharge. Orthostatic blood pressure: Patient counseled on slow transitions. Apply Car hose. PT daily, no PT needed at discharge. Dehydration: Given bolus yesterday, resolved Elevated lipase, Lipase 432, trended down to normal at 318. Denies nausea, vomiting or abdominal pain. Cont Protonix PO. ESRD on HD: T//Mon, following w/ Dr. Geronimo Tello. Cosulted nephrology, received dialysis, cleared for discharge. HTN, Uncontrolled, not compliant at home with all meds. BP 232/100, HR 60 on arrival. Blood pressures very elevated with a systolic blood pressure into the 180s. Continue Terazosin however decrease dose to 5mg hs. Cont metoprolol succinate 50mg qd. Started procardia 30mg daily, changed hydralazine to prn. BP much improved today. DM, chronic, stable. Hemoglobin A1c 6.8. Sliding scale w/ Accu-Cheks. Hyperkalemia, resolved 4.7. Hypothyroidism, chronic: Patient has an elevated TSH of 3.870, normal free T4 and low free T3. Changed synthroid from 50mcg to 75 mcg. Abnormal urinalysis, no growth in 24 hours, no fevers, no leukocytosis. Cultures with no growth. DVT Prophylaxis: Heparin sq Pt Condition on Discharge: Stable Discharge Disposition: Discharge Home Discharge Time: > 30 minutes Discharge Instructions DIET: Follow Instructions for: Heart Healthy Diet, Renal Failure Diet Activities you can perform: Regular-No Restrictions Follow up Referrals: Nephrology - Next Day PCP Follow-up - 2-3 Days with Shakila Orona MD New Medications: Levothyroxine (Synthroid) 75 Mcg Tab 75 MCG PO DAILY@0600 Thyroid #30 TAB Nifedipine ER 24 HR (Nifedipine ER 24 HR) 30 Mg Tab 30 MG PO DAILY Blood Pressure Management #30 TAB Terazosin (Terazosin) 5 Mg Cap 5 MG PO HS Urinary Symptom Managemen #30 CAP Continued Medications: Duloxetine DR (Duloxetine DR) 20 Mg Capdr 20 MG PO DAILY #30 Ref 0 CAP Guanfacine (Guanfacine) 1 Mg Tab 1 MG PO HS Do not crush, chew or divide tablet. Take with a meal. Blood Pressure Management #30 Ref 0 TAB Insulin Human NPH Inj (Novolin N Inj) 100 Unit/Ml Inj 78 UNIT SQ DAILY TAKE 78 UNITS AM AND 38 UNITS PM Metoprolol Succinate ER 24 HR (Metoprolol Succinate ER 24 HR) 50 Mg Tab 50 MG PO DAILY Regulate Heart Beat #30 Ref 0 TAB Sevelamer Carbonate (Renvela) 800 Mg Tab 800 MG PO TID Control phosphorous levels #90 Ref 0 TAB Discontinued Medications: Fluoxetine (Fluoxetine) 40 Mg Cap 40 CAP PO DAILY #30 Ref 0 CAP Levothyroxine (Synthroid) 50 Mcg Tab 50 MCG PO DAILY Thyroid #30 Ref 0 TAB Terazosin (Terazosin) 10 Mg Cap 10 MG PO HS #30 Ref 0 CAP Nida French PA-C Mar 10, 2017 12:03 pm
== END 2017-03-10 14:26 | disposition home or self-care (01) ==
LOC: NEPE 00:37 → INTOOBSV 03:40 → NEDA 03:40 → NEPHCDU 06:27
PROVIDERS: ADMIT Internal Medicine; ATTEND Internal Medicine
DX: R55 Syncope and collapse (principal); R42 Dizziness and giddiness; E86.0 Dehydration; I13.2 Hypertensive heart and chronic kidney disease with heart failure and with stage 5 chronic kidney disease, or end stage renal disease; N18.6 End stage renal disease; I50.9 Heart failure, unspecified; E11.22 Type 2 diabetes mellitus with diabetic chronic kidney disease; K85.90 Acute pancreatitis without necrosis or infection, unspecified; E11.40 Type 2 diabetes mellitus with diabetic neuropathy, unspecified; M19.90 Unspecified osteoarthritis, unspecified site; E87.5 Hyperkalemia; E03.9 Hypothyroidism, unspecified; R82.90 Unspecified abnormal findings in urine; R74.8 Abnormal levels of other serum enzymes; E88.89 Other specified metabolic disorders; D63.1 Anemia in chronic kidney disease; I34.0 Nonrheumatic mitral (valve) insufficiency; J44.9 Chronic obstructive pulmonary disease, unspecified; F32.9 Major depressive disorder, single episode, unspecified; M10.9 Gout, unspecified; E66.01 Morbid (severe) obesity due to excess calories; E11.319 Type 2 diabetes mellitus with unspecified diabetic retinopathy without macular edema; I42.9 Cardiomyopathy, unspecified; Z79.4 Long term (current) use of insulin; Z99.2 Dependence on renal dialysis; Z86.73 Personal history of transient ischemic attack (TIA), and cerebral infarction without residual deficits; Z68.41 Body mass index [BMI] 40.0-44.9, adult
CPT/HCPCS: 70450; 71010; 78472; 80048; 80053; 81001; 82550; 82552; 82948; 83036; 83690; 83735; 83880; 84100; 84439; 84443; 84481; 84484; 85025; 85027; 85610; 85730; 87086; 90935; 93005; 93306; 93880; 96361; 96372; 96374; 96375; 96376; 97161; 99285; A9560; C9113; G0257; G0378; G8987; G8988; G8989; J0360; J1644; J1815; J7030; Q4081